=== PATIENT | male | born 1950 | race Caucasian/White ===

== ENCOUNTER 2021-04-04 12:54 | Inpatient (IN) | payer OTHER, SELFPAY ==
[2021-04-04] VITALS (34 sets, daily range): BP systolic 130–164; BP diastolic 60–77; PULSE 47–131; RESP 18–50; TEMP 36.3; O2SAT 81–100
--- NOTE | 2021-04-04 13:13 | DI.CT.S_ITS ---
PROCEDURE: CT CERVICAL SPINE WO CON INDICATIONS: fall TECHNIQUE: Noncontrast 3 mm thick sections acquired from the skull base to the T4 level. Sagittal and coronal reformats were then constructed. For radiation dose reduction, the following was used: automated exposure control, adjustment of mA and/or kV according to patient size. COMPARISON: [facility], CT, CT HEAD/BRAIN WO CON, 04/04/2021, 13:43. FINDINGS: Image quality: This examination is limited by involuntary motion artifact. This examination is somewhat limited by quantum mottle artifact. Bones: No fractures or dislocations. Visualized superior ribs are intact. 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 Age-appropriate bony degenerative changes are seen. There is calcification/ossification seen posterior to the spinous processes, as on series 5, image 52. Soft tissues: Prevertebral soft tissues are normal in thickness. No paravertebral hematomas. No apical pneumothoraces. Small bilateral pleural effusions are seen. IMPRESSION: Limited study demonstrating no visualized cervical spine fracture. Small bilateral pleural effusions are incidentally noted. Incidental note is made of: C2-C3 partial congenital fusion Degenerative change Posterior soft tissue calcification/ossification Dictated by: Tristen Caldwell M.D. on 04/04/2021 at 12:58 Approved by: Tristen Caldwell M.D. on 04/04/2021 at 13:00
--- NOTE | 2021-04-04 13:13 | DI.RAD.S_ITS ---
PROCEDURE: XR HUMERUS RT 2V INDICATIONS: fall TECHNIQUE: 2 views of the humerus were acquired. COMPARISON: [facility], CT, CT CERVICAL SPINE WO CON, 04/04/2021, 13:43. [facility], CT, CT HEAD/BRAIN WO CON, 04/04/2021, 13:43. [facility], CR, XR SHOULDER RT MIN 2V, 04/04/2021, 13:40. [facility], CR, XR CHEST 1V, 04/04/2021, 13:09. FINDINGS: Study limited by difficulty with patient positioning. Bones: No fractures or dislocations. No suspicious bony lesions. Soft tissues: No suspicious soft tissue calcifications. IMPRESSION: No displaced fracture can be seen. Dictated by: Tristen Caldwell M.D. on 04/04/2021 at 13:27 Approved by: Tristen Caldwell M.D. on 04/04/2021 at 13:27
--- NOTE | 2021-04-04 13:13 | DI.CT.S_ITS ---
PROCEDURE: CT HEAD/BRAIN WO CON INDICATIONS: fall TECHNIQUE: Noncontrast 4.5 mm thick angled axial sections acquired from the foramen magnum to the vertex, with coronal and sagittal reformats. For radiation dose reduction, the following was used: automated exposure control, adjustment of mA and/or kV according to patient size. COMPARISON: [facility], CT, CT CERVICAL SPINE WO CON, 04/04/2021, 13:43. FINDINGS: Image quality: This examination is limited by involuntary motion artifact. Mild streak artifact can be seen through the skull base. CSF spaces: Basal cisterns are patent. No extra-axial fluid collections. The ventricles are symmetric in size and shape. Brain: No intracranial bleeds or masses. There is cerebral volume loss for age, with resultant ventricular and sulcal prominence. There are periventricular and deep white matter chronic small vessel ischemic changes. There is intracranial internal carotid artery atherosclerosis. Skull and face: Calvarium and visualized facial bones appear intact, without suspicious lesions. Sinuses: Visualized sinuses and mastoids are clear. IMPRESSION: Unremarkable intracranial study for age. No acute intracranial hemorrhage is seen. Dictated by: Tristen Caldwell M.D. on 04/04/2021 at 12:57 Approved by: Tristen Caldwell M.D. on 04/04/2021 at 12:57
--- NOTE | 2021-04-04 13:13 | DI.RAD.S_ITS ---
PROCEDURE: XR CHEST 1V INDICATIONS: shortness of breath TECHNIQUE: One view of the chest was acquired. COMPARISON: [facility], CT, CT CERVICAL SPINE WO CON, 04/04/2021, 13:43. [facility], CT, CT HEAD/BRAIN WO CON, 04/04/2021, 13:43. [facility], CR, XR SHOULDER RT MIN 2V, 04/04/2021, 13:40. [facility], CR, XR HUMERUS RT 2V, 04/04/2021, 13:09. FINDINGS: Surgical changes and devices: None. Lungs and pleura: Mild interstitial prominence can be seen. On this supine examination, no large pneumothorax or large pleural effusions are seen. No focal areas of lung consolidation are seen. Mediastinum: Mediastinal contours appear normal. Heart size is moderately to prominently enlarged. Bones and chest wall: No suspicious bony lesions. Age-appropriate bony degenerative changes are seen. Overlying soft tissues appear unremarkable. IMPRESSION: Cardiomegaly and mild interstitial prominence. Please correlate with patient presentation, physical examination findings, and laboratory values for congestive heart failure. Dictated by: Tristen Caldwell M.D. on 04/04/2021 at 13:26 Approved by: Tristen Caldwell M.D. on 04/04/2021 at 13:26
--- NOTE | 2021-04-04 13:24 | DI.RAD.S_ITS ---
PROCEDURE: XR SHOULDER RT MIN 2V INDICATIONS: right shoulder pain TECHNIQUE: 3 views of the shoulder were acquired. COMPARISON: [facility], CT, CT CERVICAL SPINE WO CON, 04/04/2021, 13:43. [facility], CT, CT HEAD/BRAIN WO CON, 04/04/2021, 13:43. [facility], CR, XR CHEST 1V, 04/04/2021, 13:09. [facility], CR, XR HUMERUS RT 2V, 04/04/2021, 13:09. FINDINGS: Bones: No fractures or dislocations. No suspicious bony lesions. Visualized ribs appear intact. Degenerative changes are seen, including irregularity of the acromion. Soft tissues: No suspicious soft tissue calcifications. The visualized lung demonstrates an unremarkable appearance. IMPRESSION: Degenerative change, without an acute abnormality seen by plain film. If it would be helpful for clinical management decision making, please consider a dedicated, scheduled shoulder MRI for further evaluation (assuming that there is no contraindication). Dictated by: Tristen Caldwell M.D. on 04/04/2021 at 13:27 Approved by: Tristen Caldwell M.D. on 04/04/2021 at 13:28
--- NOTE | 2021-04-04 13:25 | ED_ITS ---
HPI - Fall General Chief Complaint: Weakness Stated Complaint: Weakness Time Seen by Provider: 04/04/21 13:01 Source: patient and EMS Mode of arrival: EMS History of Present Illness HPI Narrative: This is a 70-year-old male comes emergency department with complaint of ground level fall. Patient was trying to get out of bed he states when he slipped and fell onto the floor. He states he was on the floor for at least 7 hours. He states this was Monday but medics state they came and got him today Monday. He was not on his normal home O2 was 80%. He is now on his normal O2 3 L and has 97%. Patient states his main complaint is his right shoulder he states it feels like the muscles pulled away from the bone. Patient states he did hit his head. He denies headache currently but did when he 1st fell. He denies any new neck or back pain. Um he states that he is on blood thinners for atrial fibrillation. He uses BiPAP to sleep and when he fell you did fall onto his face with the BiPAP. Patient denies any new chest pain or shortness of breath. He denies any nausea or vomiting he feels generally weak but not one-sided. No new numbness or tingling. No bowel or bladder incontinence. He states his son helped him to get to the chair in his home. He states is adamant he fell on Monday and he is aware today is Monday. He is aware of the year and his location. He states he was admitted at the hospital in [place] for 5 weeks while [facility] but they were never able to obtain this and he was ultimately discharged home. Related Data Allergies Allergy/AdvReac Type Severity Reaction Status Date / Time No Known Drug Allergies Allergy Verified 04/04/21 13:54 Review of Systems Review of Systems ROS Unobtainable: All systems reviewed & are unremarkable except as noted in HPI and below Exam Narrative Exam Narrative: GEN: Patient appears in mild distress. HEAD: No evidence of trauma, no raccoon/Valdez sign. NECK: Nontender, painless range of motion, trachea midline Exam Nexus criteria, there is no midline line tenderness, distracting injury, altered mental status, neuro deficit, recent EtOH. EYES: PERRLA, EOMI ENT: External inspection normal, trachea is midline, TM's are normal no hemotypanum, Nares are clear, no septal hematoma, no dental or oral injury, airway is normal and with normal occlusion, No bony tenderness RESP: Chest is nontender and has symmetric movement, no ecchymosis, breath sounds are normal no crackles, wheezes or rales CVS: Heart sounds are normal, no murmur noted, No JVD. ABG/GI: Nontender, soft, normal bowel sounds, no distention, no organomegaly, pelvic rock is negative NEURO: Oriented AOx3, neuro is grossly intact, sensation and motor is normal all 4 extremities moving, cranial nerves II through XII are intact, GCS is 15 PSYCH: Normal mood and affect SKIN: Intact, warm and dry, no crepitus and without decubitus patient does have small area of ecchymosis over the shoulder. BACK: No CVA tenderness, no vertebral tenderness, no step-off's, no crepitus EXT: Patient has pain at the shoulder with movement but is able to move his lower without any issue. He does have some movement at the shoulder joint but is quite painful with ab and adduction. He is otherwise nontende and his other extremities, patient has normal cap refill in all 4 extremities with 2+ pulses bilateral upper extremities. Patient does have some hyperkeratotic and skin thickening part consistent with chronic venous stasis in his lower anterior shins. Initial Vital Signs Initial Vital Signs: Vital Signs Pulse Rate 82 04/04/21 12:53 Pulse Oximetry 100 04/04/21 12:53 Course Orders Ordered: ED Orders 04/04/21 13:10 COVID19 -Nasal swab/Pre-Proc Stat Complete Blood Count AUTO DIFF Stat Comprehensive Metabolic Panel Stat Lactate (Lactic Acid) Stat NT-proBNP (BNP-Adult 18+) Stat Prothrombin Time INR Stat Troponin & CK Cardiac Panel Stat 04/04/21 13:13 CT cervical spine wo con Stat CT head/brain wo con Stat XR chest 1V Stat XR humerus RT 2V Stat EKG-12 Lead Stat Measure peak expiratory flow ONCE RT Consult Eval and Treat Now 04/04/21 13:24 XR shoulder RT min 2V Stat 04/04/21 15:11 BiPAP Ventilatory Support RT PROTOCOL 04/04/21 15:39 UA Complete [Urinalysis and Microscopic] Stat Urine Drug Screen, Rapid Stat 04/04/21 16:11 ABG [Arterial Blood Gas] Stat 04/04/21 16:29 COVID19 - ADMIT (GARMENT PRESSER swab/PCR) Stat Acetaminophen (Acetaminophen 325 Mg Tablet) 650 mg PO Q6HR PRN PRN Reason: Fever/Mild Pain (1-3) Albuterol/Ipratropium (Albuterol/Ipratropium 3 Ml Ampul) 3 ml INH RTQ4HR PRN PRN Reason: Shortness Of Breath Bisacodyl (Bisacodyl 10 Mg Supp) 10 mg OH DAILY PRN PRN Reason: Constipation Docusate Sodium (Docusate 100 Mg Capsule) 100 mg PO BID [facility] Enoxaparin Sodium (Enoxaparin 40 Mg/0.4 Ml Syringe) 40 mg SUBCUT DAILY [facility] Famotidine (Famotidine 20 Mg/2 Ml Vial) 40 mg IV BID [facility] Sodium Chloride (Normal Saline 0.9%) 1,000 mls @ 100 mls/hr IV CONT [facility] Last Admin: 04/04/21 17:57 Dose: 100 mls/hr Documented by: JURGEN Ceftriaxone Sodium 1,000 mg/ (Sodium Chloride) 100 mls @ 200 mls/hr IV Q24H [facility] Last Admin: 04/04/21 17:58 Dose: 200 mls/hr Documented by: JURGEN Doxycycline Hyclate 100 mg/ (Sodium Chloride) 100 mls @ 100 mls/hr IV Q12H [facility] Last Admin: 04/04/21 18:53 Dose: 100 mls/hr Documented by: JURGEN Lorazepam (Lorazepam 2 Mg/Ml Inj) 1 mg IV Q4HR PRN PRN Reason: Anxiety Methylprednisolone (Methylprednisolone 125 Mg/2 Ml Vial) 60 mg IV Q8H [facility] Last Admin: 04/04/21 17:58 Dose: 60 mg Documented by: JURGEN Morphine Sulfate (Morphine 2 Mg/Ml Inj) 2 mg IV Q4HR PRN PRN Reason: Pain, Moderate (4-6) Naloxone HCl (Naloxone 0.4 Mg/Ml Vial) 0.2 mg IV Q2MIN PRN PRN Reason: Opiate Reversal Ondansetron HCl (Ondansetron 4 Mg/2 Ml Inj) 4 mg IV Q8HR PRN PRN Reason: Nausea And Vomiting Discontinued Medications Acetaminophen (Acetaminophen 325 Mg Tablet) 650 mg PO NOW ONE Stop: 04/04/21 13:25 Last Admin: 04/04/21 14:32 Dose: 650 mg Documented by: JURGEN Furosemide (Furosemide 40 Mg/4 Ml Vial) 40 mg IV NOW ONE Stop: 04/04/21 15:05 Last Admin: 04/04/21 15:28 Dose: 40 mg Documented by: JURGEN Reevaluation(s) Reevaluation #1: Patient has had some intermittent lows on his oxygenation when he falls asleep. He normally uses a BiPAP at home. Attempted to contact family to bring his machine but were unable so RT placed him on BiPAP for when he sleeps. His labs showed elevated CO2 his BNP is slightly elevated but no other major changes. He has some cardiomegaly and mild interstitial prominence which could be consistent with congestive heart failure. Patient's head CT is negative, C-spine is negative with no obvious dislocation or fracture at his shoulder. He does have quite a bit of pain so I suspect he has had a ligamentous or tendon injury. Time: 15:04 Consultations Consultation #1: Patient accepted by Dr. Perez for acute on chronic hypercapnic respiratory failure. Patient's ABG shows a CO2 of 90. He has intermittent confusion but is not obtunded. Vital Signs Vital signs: Vital Signs - 8 hr 04/04/21 12:53 04/04/21 12:54 04/04/21 13:00 Temperature Pulse Rate 82 82 83 Respiratory Rate Blood Pressure 153/68 H 148/67 H Pulse Oximetry 100 100 94 04/04/21 13:15 04/04/21 13:30 04/04/21 14:07 Temperature 97.4 F L Pulse Rate 84 77 Respiratory Rate 20 Blood Pressure 148/67 H 157/72 H Pulse Oximetry 97 91 81 L 04/04/21 14:08 04/04/21 14:30 04/04/21 15:00 Temperature Pulse Rate 82 83 83 Respiratory Rate Blood Pressure 159/72 H 148/65 H 148/65 H Pulse Oximetry 92 95 96 04/04/21 15:30 04/04/21 15:39 04/04/21 16:00 Temperature Pulse Rate 76 70 70 Respiratory Rate Blood Pressure 153/68 H 151/70 H 164/73 H Pulse Oximetry 95 95 98 04/04/21 16:30 Temperature Pulse Rate 75 Respiratory Rate Blood Pressure 156/72 H Pulse Oximetry 98 MDM - Fall Lab Data Result diagrams: 04/04/21 13:10 04/04/21 13:10 Labs: Lab Results 04/04/21 04/04/21 04/04/21 Range/Units 13:10 13:10 13:10 WBC 7.0 (4.5-11.0) X10^3/uL RBC 4.41 L (4.5-5.9) X10^6/uL Hgb 11.0 L (13.5-17.5) g/dL Hct 36.2 L (41-53) % MCV 82.0 (80-100) fL MCH 25.0 L (26-34) PG MCHC 30.5 (30-36) % RDW 21.8 H (11.6-14.8) % Plt Count 213 (150-400) X10^3/uL Neut % (Auto) 72.7 (50-75) % Lymph % (Auto) 18.2 L (25-40) % [place] % (Auto) 5.7 (3-14) % Eos % (Auto) 3.0 (2-4) % Baso % (Auto) 0.4 (0-2) % Neut # (Auto) 5100 (5846-5399) /uL Lymph # (Auto) 1300 (2359-8363) /uL [place] # (Auto) 400 (0-900) /uL Eos # (Auto) 200 (0-450) /uL Baso # (Auto) 0 (0-100) /uL RBC Morphology See below Polychromasia 1+ H Anisocytosis 2+ H Ovalocytes 1+ H PT 13.2 H (10.1-12.7) SECONDS INR 1.2 (0.9-1.3) ABG pH (7.35-7.45) ABG pCO2 (35-45) mmHg ABG pO2 (80-100) mmHg ABG HCO3 (22-26) mmol/L ABG Total CO2 (21-31) mmol/L ABG O2 Saturation (95-100) % ABG Base Excess (-2-2) mmol/L FiO2 Sodium 142 (137-145) mmol/L Potassium 4.4 (3.4-5.1) mmol/L Chloride 94 L (98-107) mmol/L Carbon Dioxide 48 H* (22-32) mmol/L BUN 28 H (9-20) mg/dL Creatinine 0.90 (0.66-1.25) mg/dL Estimated GFR > 60.0 (>60) mL/min BUN/Creatinine Ratio 31.1 H (6-22) Glucose 117 H (80-110) mg/dL Lactate (0.7-2.1) mmol/L Calcium 8.7 (8.4-10.2) mg/dL Total Bilirubin 0.4 (0.2-1.3) mg/dL AST 21 (17-59) IU/L ALT 12 (<50) IU/L Alkaline Phosphatase 101 (38-126) U/L Total Creatine Kinase 24 L (55-170) U/L CK-MB (CK-2) TNP CK-MB (CK-2) Rel Index TNP Troponin I 0.017 (0.01-0.034) ng/mL NT-Pro-B Natriuret Pep 929 H (<125) pg/mL Total Protein 6.9 (6.3-8.2) g/dL Albumin 3.5 (3.5-5.0) g/dL Globulin 3.4 (1.7-4.1) g/dL Albumin/Globulin Ratio 1.0 (1.0-2.8) SARS-CoV-2 (PCR) (Negative) 04/04/21 04/04/21 04/04/21 Range/Units 13:10 13:10 16:11 WBC (4.5-11.0) X10^3/uL RBC (4.5-5.9) X10^6/uL Hgb (13.5-17.5) g/dL Hct (41-53) % MCV (80-100) fL MCH (26-34) PG MCHC (30-36) % RDW (11.6-14.8) % Plt Count (150-400) X10^3/uL Neut % (Auto) (50-75) % Lymph % (Auto) (25-40) % [place] % (Auto) (3-14) % Eos % (Auto) (2-4) % Baso % (Auto) (0-2) % Neut # (Auto) (8730-3967) /uL Lymph # (Auto) (7219-6792) /uL [place] # (Auto) (0-900) /uL Eos # (Auto) (0-450) /uL Baso # (Auto) (0-100) /uL RBC Morphology Polychromasia Anisocytosis Ovalocytes PT (10.1-12.7) SECONDS INR (0.9-1.3) ABG pH 7.27 L* (7.35-7.45) ABG pCO2 98.1 H* (35-45) mmHg ABG pO2 67 L (80-100) mmHg ABG HCO3 45 H (22-26) mmol/L ABG Total CO2 48 H (21-31) mmol/L ABG O2 Saturation 88 L (95-100) % ABG Base Excess 18.0 H (-2-2) mmol/L FiO2 32 Sodium (137-145) mmol/L Potassium (3.4-5.1) mmol/L Chloride (98-107) mmol/L Carbon Dioxide (22-32) mmol/L BUN (9-20) mg/dL Creatinine (0.66-1.25) mg/dL Estimated GFR (>60) mL/min BUN/Creatinine Ratio (6-22) Glucose (80-110) mg/dL Lactate < 0.5 L (0.7-2.1) mmol/L Calcium (8.4-10.2) mg/dL Total Bilirubin (0.2-1.3) mg/dL AST (17-59) IU/L ALT (<50) IU/L Alkaline Phosphatase (38-126) U/L Total Creatine Kinase (55-170) U/L CK-MB (CK-2) CK-MB (CK-2) Rel Index Troponin I (0.01-0.034) ng/mL NT-Pro-B Natriuret Pep (<125) pg/mL Total Protein (6.3-8.2) g/dL Albumin (3.5-5.0) g/dL Globulin (1.7-4.1) g/dL Albumin/Globulin Ratio (1.0-2.8) SARS-CoV-2 (PCR) Negative (Negative) 04/04/21 Range/Units 16:29 WBC (4.5-11.0) X10^3/uL RBC (4.5-5.9) X10^6/uL Hgb (13.5-17.5) g/dL Hct (41-53) % MCV (80-100) fL MCH (26-34) PG MCHC (30-36) % RDW (11.6-14.8) % Plt Count (150-400) X10^3/uL Neut % (Auto) (50-75) % Lymph % (Auto) (25-40) % [place] % (Auto) (3-14) % Eos % (Auto) (2-4) % Baso % (Auto) (0-2) % Neut # (Auto) (1760-6596) /uL Lymph # (Auto) (8650-1919) /uL [place] # (Auto) (0-900) /uL Eos # (Auto) (0-450) /uL Baso # (Auto) (0-100) /uL RBC Morphology Polychromasia Anisocytosis Ovalocytes PT (10.1-12.7) SECONDS INR (0.9-1.3) ABG pH (7.35-7.45) ABG pCO2 (35-45) mmHg ABG pO2 (80-100) mmHg ABG HCO3 (22-26) mmol/L ABG Total CO2 (21-31) mmol/L ABG O2 Saturation (95-100) % ABG Base Excess (-2-2) mmol/L FiO2 Sodium (137-145) mmol/L Potassium (3.4-5.1) mmol/L Chloride (98-107) mmol/L Carbon Dioxide (22-32) mmol/L BUN (9-20) mg/dL Creatinine (0.66-1.25) mg/dL Estimated GFR (>60) mL/min BUN/Creatinine Ratio (6-22) Glucose (80-110) mg/dL Lactate (0.7-2.1) mmol/L Calcium (8.4-10.2) mg/dL Total Bilirubin (0.2-1.3) mg/dL AST (17-59) IU/L ALT (<50) IU/L Alkaline Phosphatase (38-126) U/L Total Creatine Kinase (55-170) U/L CK-MB (CK-2) CK-MB (CK-2) Rel Index Troponin I (0.01-0.034) ng/mL NT-Pro-B Natriuret Pep (<125) pg/mL Total Protein (6.3-8.2) g/dL Albumin (3.5-5.0) g/dL Globulin (1.7-4.1) g/dL Albumin/Globulin Ratio (1.0-2.8) SARS-CoV-2 (PCR) Negative (Negative) Imaging Data CT scan - head: Radiologist's Impression: GEN: well nourished, well appearing [default value], alert and oriented x [default value], patient appears to be in [default value] distress. HEENT: Atraumatic, pupils are equal round reactive to light, extraocular movements are intact, nares are clear, TMs are clear with no fluid, there is no conjunctival pallor.? Throat is clear without any exudates, erythema, tonsillar enlargement or uvular deviation HEART: Regular rate and rhythm without murmur, clicks, rubs.? No carotid bruits, pulses are equal in upper and lower extremities LUNGS:Lungs clear to auscultation, no wheezes, rales, crackles, chest moves symmetrically ABD:bowel sounds normal, soft, non-tender, no guarding, rebound, rigidity, no masses noted, no hepatosplenomegaly :No CVA tenderness, [male/female exam] MSCL: Non-tender, no muscle atrophy, muscles strength 5/5 upper and lower ext remities, full range of motion, normal gait NEURO:CN 2-12 intact, sensation normal, reflexes 2/4 upper and lower extremities. finger nose finger test normal, heel cancino test normal, romberg normal Chest x-ray: Radiologist's Impression: Bradley Montalvo??70??M??1950 ? Allergy/Adv: No Known Drug Allergies Close Shoulder X-Ray (Signed) Tristen Caldwell 04/04/21 Humerus X-Ray (Signed) Tristen Caldwell 04/04/[address] (Signed) Tristen Caldwell 04/04/21 Chest X-Ray (Signed) Tristen Caldwell 04/04/[address] (Signed) Tristen Caldwell 04/04/21 Launch?[address] [address] XRay Report Signed Patient: Bradley Montalvo MR#: [id number] : 1950 Acct:[id number] Age/Sex: 70 / M Date of Service: 04/04/21 Loc: ED Accession Number: [id number] ?? Procedure: XR chest 1V Ordering Provider: Joana Potts D.O. PROCEDURE:? XR CHEST 1V ? INDICATIONS:? shortness of breath ? TECHNIQUE:? One view of the chest was acquired.? ? COMPARISON:? [facility], CT, CT CERVICAL SPINE WO CON, 04/04/2021, 13:43.? [facility], CT, CT HEAD/BRAIN WO CON, 04/04/2021, 13:43.? [facility], CR, XR SHOULDER RT MIN 2V, 04/04/2021, 13:40.? [facility], CR, XR HUMERUS RT 2V, 04/04/2021, 13:09. ? FINDINGS:? ? Surgical changes and devices:? None.? ? Lungs and pleura:? Mild interstitial prominence can be seen.? On this supine examination, no large pneumothorax or large pleural effusions are seen. No focal areas of lung consolidation are seen. ? Mediastinum:? Mediastinal contours appear normal.? Heart size is moderately to prominently enlarged.? ? Bones and chest wall:? No suspicious bony lesions.? Age-appropriate bony degenerative changes are seen. ? Overlying soft tissues appear unremarkable.? ? ? IMPRESSION:? Cardiomegaly and mild interstitial prominence.? Please correlate with patient presentation, physical examination findings, and laboratory values for congestive heart failure. ? ? Dictated by: Tristen Caldwell M.D. on 04/04/2021 at 13:26 ? ? Approved by: Tristen Caldwell M.D. on 04/04/2021 at 13:26?? CT - cervical spine: Radiologist's Impression: Bradley Montalvo? 70? M? 1950 ? ?? [address] [address]JW Scan ReportSigned Patient: Bradley Montalvo DMR#: [id number]: 1950cct:[id number]/Sex: 70 / MDate of Service: 04/04/21Loc: EDAccession Number: [id number]? ? Procedure: CT cervical spine wo con Ordering Provider: Joana Potts D.O. PROCEDURE:? CT CERVICAL SPINE WO CON ? INDICATIONS:? fall ? TECHNIQUE:? Noncontrast 3 mm thick sections acquired from the skull base to the T4 level.? Sagittal and coronal reformats were then constructed.? For radiation dose reduction, the following was used:? automated exposure control, adjustment of mA and/or kV according to patient size.? ? COMPARISON:? [facility], CT, CT HEAD/BRAIN WO CON, 04/04/2021, 13:43. ? FINDINGS:? Image quality:? This examination is limited by involuntary motion artifact.? This examination is somewhat limited by quantum mottle artifact.? ? Bones:? No fractures or dislocations.? Visualized superior ribs are intact.? 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 Age-appropriate bony degenerative changes are seen.? There is calcification/ossification seen posterior to the spinous processes, as on series 5, image 52.? ? Soft tissues:? Prevertebral soft tissues are normal in thickness.? No paravertebral hematomas.? No apical pneumothoraces.? Small bilateral pleural effusions are seen. ? ? IMPRESSION:? Limited study demonstrating no visualized cervical spine fracture. ? Small bilateral pleural effusions are incidentally noted. ? ? Incidental note is made of: C2-C3 partial congenital fusion Degenerative change Posterior soft tissue calcification/ossification ? ? Dictated by: Tristen Caldwell M.D. on 04/04/2021 at 12:58? ?? Approved by: Tristen Caldwell M.D. on 04/04/2021 at 13:00?? Extremity x-ray #1: Radiologist's Impression: Launch?Image [address] [address] XRay Report Signed Patient: Bradley Montalvo MR#: [id number] : 1950 Acct:[id number] Age/Sex: 70 / M Date of Service: 04/04/21 Loc: ED Accession Number: [id number] ?? Procedure: XR humerus RT 2V Ordering Provider: Joana Potts D.O. PROCEDURE:? XR HUMERUS RT 2V ? INDICATIONS:? fall ? TECHNIQUE:? 2 views of the humerus were acquired.? ? COMPARISON:? [facility], CT, CT CERVICAL SPINE WO CON, 04/04/2021, 13:43.? [facility], CT, CT HEAD/BRAIN WO CON, 04/04/2021, 13:43.? [facility], CR, XR SHOULDER RT MIN 2V, 04/04/2021, 13:40.? [facility], CR, XR CHEST 1V, 04/04/2021, 13:09. ? FINDINGS:? Study limited by difficulty with patient positioning. ? Bones:? No fractures or dislocations.? No suspicious bony lesions.? ? Soft tissues:? No suspicious soft tissue calcifications.? IMPRESSION:? No displaced fracture can be seen. ? ? Dictated by: Tristen Caldwell M.D. on 04/04/2021 at 13:27 ? ? Approved by: Tristen Caldwell M.D. on 04/04/2021 at 13:27?? Extremity x-ray #2: Radiologist's Impression: Launch?[place] [address] XRay Report Signed Patient: Bradley Montalvo MR#: [id number] : 1950 Acct:[id number] Age/Sex: 70 / M Date of Service: 04/04/21 Loc: ED Accession Number: [id number] ?? Procedure: XR humerus RT 2V Ordering Provider: Joana Potts D.O. PROCEDURE:? XR HUMERUS RT 2V ? INDICATIONS:? fall ? TECHNIQUE:? 2 views of the humerus were acquired.? ? COMPARISON:? [facility], CT, CT CERVICAL SPINE WO CON, 04/04/2021, 13:43.? [facility], CT, CT HEAD/BRAIN WO CON, 04/04/2021, 13:43.? [facility], CR, XR SHOULDER RT MIN 2V, 04/04/2021, 13:40.? [facility], CR, XR CHEST 1V, 04/04/2021, 13:09. ? FINDINGS:? Study limited by difficulty with patient positioning. ? Bones:? No fractures or dislocations.? No suspicious bony lesions.? ? Soft tissues:? No suspicious soft tissue calcifications.? IMPRESSION:? No displaced fracture can be seen. ? ? Dictated by: Tristen Caldwell M.D. on 04/04/2021 at 13:27 ? ? Approved by: Tristen Caldwell M.D. on 04/04/2021 at 13:27?? ECG Data Attestation: I personally reviewed and interpreted this ECG as follows: Prior ECG tracings: not available for review Interpretation: Sinus rhythm with first-degree AV block. Rate of 76 OH 292, QRS of 78 QTC of 420. No acute ST changes noted. Discharge Plan Departure Patient Disposition: Admitted As Inpatient Clinical Impression: Fall, Pain in right shoulder, CHF (congestive heart failure), Acute and chronic respiratory failure with hypercapnia Admit Date/Time: 04/04/21 16:42 Admit Provider: Ken Fofana
[2021-04-04 13:37] LABS: INR 1.2 (0.9-1.3); Prothrombin Time 13.2 SECONDS (10.1-12.7)
[2021-04-04 13:40] LABS: Add Manual Diff / Slide Review NO; Basophils Absolute Auto 0 /uL (0-100); Basophils Percent Auto 0.4 % (0-2); Eosinophils Absolute Auto 200 /uL (0-450); Hematocrit 36.2 % (41-53); Lymphocytes Absolute Auto 1300 /uL (1100-4500); Lymphocytes Percent Auto 18.2 % (25-40); Mean Corpuscular HGB Conc 30.5 % (30-36); Monocytes Absolute Auto 400 /uL (0-900); Monocytes Percent Auto 5.7 % (3-14); Neutrophils Absolute Auto 5100 /uL (1500-7000); Neutrophils Percent Auto 72.7 % (50-75); Platelet Count 213 X10^3/uL (150-400); Red Blood Cell Count 4.41 X10^6/uL (4.5-5.9); Red Cell Distribution Width 21.8 % (11.6-14.8)
[2021-04-04 13:41] LABS: Alanine Aminotransferase 12 IU/L (<50); Albumin 3.5 g/dL (3.5-5.0); Alkaline Phosphatase 101 U/L (38-126); Aspartate Aminotransferase 21 IU/L (17-59); BUN Creatinine Ratio 31.1 (6-22); Bilirubin Total 0.4 mg/dL (0.2-1.3); Blood Urea Nitrogen 28 mg/dL (9-20); Calcium 8.7 mg/dL (8.4-10.2); Chloride 94 mmol/L (98-107); Creatine Kinase 24 U/L (55-170); Estimated Glomerular Filt Rate > 60.0 mL/min (>60); Globulin 3.4 g/dL (1.7-4.1); Glucose 117 mg/dL (80-110); HEMOLYSIS < 15 (0-50); Potassium 4.4 mmol/L (3.4-5.1); Sodium 142 mmol/L (137-145); Total Protein 6.9 g/dL (6.3-8.2)
[2021-04-04 13:49] LABS: Lactate (Lactic Acid) < 0.5 mmol/L (0.7-2.1)
[2021-04-04 13:52] LABS: Carbon Dioxide 48 mmol/L (22-32)
[2021-04-04 13:53] LABS: NT-proBNP (BNP-Adult 18+) 929 pg/mL (<125); Troponin I 0.017 ng/mL (0.01-0.034)
[2021-04-04 14:03] LABS: COVID19 -Nasal RAPID Negative (Negative)
[2021-04-04] MEDS: ACETAMINOPHEN 325 MG TABLET 650 MG PO (14:32)
[2021-04-04 14:52] LABS: Anisocytosis 2+; Ovalocytes 1+; Polychromasia 1+
[2021-04-04] MEDS: FUROSEMIDE 40 MG/4 ML VIAL IV (15:28)
--- NOTE | 2021-04-04 15:33 | PC.NURSE ---
10L O2 on non-rebreather t maintain sat of 92-96%. RT placed pt on positive pressure for O2 sat maintenance. Current sat 91-96%. Pt has sleep apnea, O2 sat decreases when patient dozes-off. aware.
--- NOTE | 2021-04-04 15:36 | PC.NURSE ---
Pt failed ambulation test. Pt is currently confused to place/situation and date/time. MD advised.
--- NOTE | 2021-04-04 16:00 | PC.NURSE ---
Unable to place urinary jonas catheter after multiple attempts, aware. Assisted by and fish bin tender.
--- NOTE | 2021-04-04 16:00 | PC.NURSE ---
RT at bedside, pt ABG 98.
--- NOTE | 2021-04-04 17:11 | RT ---
Re ABG results co2 98, Dr. Potts order to place on Bipap. Pt kana well, sao2 @95%. barrier applied to face and bridge of nose, redness
[2021-04-04 17:17] LABS: pH ABG 7.27 (7.35-7.45)
[2021-04-04 17:18] LABS: Fractionated Inspired Oxygen 32; HCO3 ABG 45 mmol/L (22-26); Oxygen Saturation ABG 88 % (95-100); PCO2 ABG 98.1 mmHg (35-45); PO2 ABG 67 mmHg (80-100); TCO2 ABG 48 mmol/L (21-31)
--- NOTE | 2021-04-04 17:18 | PC.NURSE ---
states patient was hospitalized @ [facility] x 34 days for hypoxia. Patient currently on BiPap 20/, 40% with 20 BUR. ABG 98 @ 32% per RT.
[2021-04-04 17:44] LABS: COVID19 - ADMIT (NP swab/PCR) Negative (Negative)
[2021-04-04] MEDS: SODIUM CHLORIDE 0.9% 1,000 ML 100 ML IV (17:57)
[2021-04-04] MEDS: cefTRIAXone 1,000 MG in SODIUM CHLORIDE 0.9% 100 ML 200 ML IV (17:58)
[2021-04-04] MEDS: methylPREDNISolone 125 MG/2 ML VIAL 60 MG IV (17:58)
--- NOTE | 2021-04-04 18:42 | P.HP_ITS ---
History of Present Illness History of Present Illness Date Patient Seen: 04/04/21 Chief complaint: Weakness Narrative: THIS IS A 70-YEAR-OLD MALE FOR POSSIBLE TO GO HISTORY SIGNIFICANT FOR COPD. PATIENT PRESENTED TO THE HOSPITAL WITH SIGN OF ACUTE RESPIRATORY FAILURE WITH CHANGE IN MENTATION. IN THE ER, HIS ABG SHOWED SIGNIFICANT HYPERCAPNIA. PATIENT WAS STARTED ON THE BIPAP. HE IS SIGNIFICANTLY ENCEPHALOPATHIC AND UNABLE TO PROVIDE A RELIABLE HISTORY AND REVIEW OF SYSTEM. ADDITIONAL WORKUP IN THE ER SHOWING FAIRLY STABLE KIDNEY FUNCTION. CO2 IN THE COMPLETE METABOLIC PANEL IS 48. CARBON DIOXIDE LEVEL IS 98. SOME ANEMIA NOTED. LACTIC IS OOZING NORMAL LIMIT. BNP MILDLY ELEVATED AT 900 IMAGING DONE IN THE ER DID NOT SHOW ANY SIGNIFICANT ABNORMALITIES. Meds Home Medications and Allergies Allergies Allergy/AdvReac Type Severity Reaction Status Date / Time No Known Drug Allergies Allergy Verified 04/04/21 13:54 Review of Systems Review of Systems Narrative: UNABLE TO OBTAIN DUE TO PATIENT CURRENT MENTAL CONDITION Exam Vital Signs (past 8 hours): - 04/04/21 12:53 04/04/21 12:54 04/04/21 13:00 Temperature Pulse Rate 82 82 83 Respiratory Rate Blood Pressure 153/68 H 148/67 H Pulse Oximetry 100 100 94 04/04/21 13:15 04/04/21 13:30 04/04/21 14:07 Temperature 97.4 F L Pulse Rate 84 77 Respiratory Rate 20 Blood Pressure 148/67 H 157/72 H Pulse Oximetry 97 91 81 L 04/04/21 14:08 04/04/21 14:30 04/04/21 15:00 Temperature Pulse Rate 82 83 83 Respiratory Rate Blood Pressure 159/72 H 148/65 H 148/65 H Pulse Oximetry 92 95 96 04/04/21 15:30 04/04/21 15:39 04/04/21 16:00 Temperature Pulse Rate 76 70 70 Respiratory Rate Blood Pressure 153/68 H 151/70 H 164/73 H Pulse Oximetry 95 95 98 04/04/21 16:30 04/04/21 17:00 04/04/21 17:30 Temperature Pulse Rate 75 82 75 Respiratory Rate Blood Pressure 156/72 H 141/67 H 156/71 H Pulse Oximetry 98 96 97 04/04/21 18:00 04/04/21 18:30 Temperature Pulse Rate 75 66 Respiratory Rate Blood Pressure 147/69 H 147/67 H Pulse Oximetry 95 98 Fraction of Inspired Oxygen 40 Oxygen Delivery Method BiPAP Oxygen Flow Rate 10 Narrative Exam Narrative: ENCEPHALOPATHY.. APPEARS OLDER THAN STATED AGE. OBESE HEAD ATRAUMATIC NORMOCEPHALIC NECK : NO ADENOPATHY NO CAROTID BRUITS EYE: PERRLA, NORMAL CONJUNCTIVA; NO JAUNDICE CHEST: REGULAR RATE. NO RUBS. PMI IS NON DISPLACED. NO MURMURS; NORMAL S1-S2 PULMONARY: ON BIPAP. IS IN APPRECIATED BILATERALLY. DECREASED BS OVER THE BASES. BIBASILAR CRACKLES NOTED; NO INCREASED DULLNESS TO PERCUSSION ABDOMEN: OBESE BUTSOFT. NONDISTENDED. BOWEL SOUNDS ARE PRESENT IN ALL 4 QUADRANTS. UNABLE TO PALPATE FOR ORGANOMEGALY DUE TO BODY HABITUS EXTREMITIES: 3+ NONPITTING BILATERAL LOWER EXTREMITY EDEMA.. NO CYANOSIS CLUBBING NOTED. NEURO: CRANIAL NERVES 2-12 GROSSLY INTACT. NO FOCAL NEUROLOGICAL DEFICIT NOTED. ENCEPHALOPATHY MSK: NORMAL PASSIVE RANGE OF MOTION FOR AGE. NO JOINT EFFUSION. NO TRAUMA SKIN: CHRONIC CHANGES NOTED TO BILATERAL LOWER EXTREMITIES. NO OPEN LESION PSYCH : ENCEPHALOPATHY. NO AGGRESSION. MILDLY AGITATED Objective Labs Result Diagrams: 04/04/21 13:10 04/04/21 13:10 Labs: Laboratory Results - last 24 hr 04/04/21 04/04/21 04/04/21 13:10 13:10 13:10 WBC 7.0 RBC 4.41 L Hgb 11.0 L Hct 36.2 L MCV 82.0 MCH 25.0 L MCHC 30.5 RDW 21.8 H Plt Count 213 Neut % (Auto) 72.7 Lymph % (Auto) 18.2 L [place] % (Auto) 5.7 Eos % (Auto) 3.0 Baso % (Auto) 0.4 Neut # (Auto) 5100 Lymph # (Auto) 1300 [place] # (Auto) 400 Eos # (Auto) 200 Baso # (Auto) 0 RBC Morphology See below Polychromasia 1+ H Anisocytosis 2+ H Ovalocytes 1+ H PT 13.2 H INR 1.2 ABG pH ABG pCO2 ABG pO2 ABG HCO3 ABG Total CO2 ABG O2 Saturation ABG Base Excess FiO2 Sodium 142 Potassium 4.4 Chloride 94 L Carbon Dioxide 48 H* BUN 28 H Creatinine 0.90 Estimated GFR > 60.0 BUN/Creatinine Ratio 31.1 H Glucose 117 H Lactate Calcium 8.7 Total Bilirubin 0.4 AST 21 ALT 12 Alkaline Phosphatase 101 Total Creatine Kinase 24 L CK-MB (CK-2) TNP CK-MB (CK-2) Rel Index TNP Troponin I 0.017 NT-Pro-B Natriuret Pep 929 H Total Protein 6.9 Albumin 3.5 Globulin 3.4 Albumin/Globulin Ratio 1.0 SARS-CoV-2 (PCR) 04/04/21 04/04/21 04/04/21 13:10 13:10 16:11 WBC RBC Hgb Hct MCV MCH MCHC RDW Plt Count Neut % (Auto) Lymph % (Auto) [place] % (Auto) Eos % (Auto) Baso % (Auto) Neut # (Auto) Lymph # (Auto) [place] # (Auto) Eos # (Auto) Baso # (Auto) RBC Morphology Polychromasia Anisocytosis Ovalocytes PT INR ABG pH 7.27 L* ABG pCO2 98.1 H* ABG pO2 67 L ABG HCO3 45 H ABG Total CO2 48 H ABG O2 Saturation 88 L ABG Base Excess 18.0 H FiO2 32 Sodium Potassium Chloride Carbon Dioxide BUN Creatinine Estimated GFR BUN/Creatinine Ratio Glucose Lactate < 0.5 L Calcium Total Bilirubin AST ALT Alkaline Phosphatase Total Creatine Kinase CK-MB (CK-2) CK-MB (CK-2) Rel Index Troponin I NT-Pro-B Natriuret Pep Total Protein Albumin Globulin Albumin/Globulin Ratio SARS-CoV-2 (PCR) Negative 04/04/21 16:29 WBC RBC Hgb Hct MCV MCH MCHC RDW Plt Count Neut % (Auto) Lymph % (Auto) [place] % (Auto) Eos % (Auto) Baso % (Auto) Neut # (Auto) Lymph # (Auto) [place] # (Auto) Eos # (Auto) Baso # (Auto) RBC Morphology Polychromasia Anisocytosis Ovalocytes PT INR ABG pH ABG pCO2 ABG pO2 ABG HCO3 ABG Total CO2 ABG O2 Saturation ABG Base Excess FiO2 Sodium Potassium Chloride Carbon Dioxide BUN Creatinine Estimated GFR BUN/Creatinine Ratio Glucose Lactate Calcium Total Bilirubin AST ALT Alkaline Phosphatase Total Creatine Kinase CK-MB (CK-2) CK-MB (CK-2) Rel Index Troponin I NT-Pro-B Natriuret Pep Total Protein Albumin Globulin Albumin/Globulin Ratio SARS-CoV-2 (PCR) Negative Assessment & Plan Assessment & Plan narrative: IMPRESSION ACUTE HYPOXIC/HYPERCAPNIC CHRONIC RESPIRATORY FAILURE ACUTE COPD EXACERBATION METABOLIC ENCEPHALOPATHY MORBID OBESITY ELEVATED BNP POSSIBLE PHYSICAL DECONDITIONING PLAN PATIENT WILL BE ADMITTED TO THE FLOOR ON BIPAP SUPPORT SERIAL ABG TO FOLLOW REPEAT CHEST X-RAY IN THE MORNING AND SERIALLY TO FOLLOW ASPIRATION PRECAUTION TO MAINTAIN STRICT A WHILE ON THE VENT STARTED ON ANTIBIOTICS WITH ROCEPHIN AND DOXY DUONEBS TREATMENT ORDERED NEEDED FOR NOW HOWEVER SHOULD BE SWITCHED TO SCHEDULE ONCE PATIENT IS OFF BIPAP ON SOLU-MEDROL IF PATIENT IS MOVED TO THE ICU, WILL CONSULT WITH CLAY PREPARATION SUPERVISOR ASSISTANCE DAILY LABS WILL BE ORDERED WILL ORDER INCENTIVE SPIROMETER DEVICE ONCE PATIENT IS OFF THE BIPAP AGGRESSIVE PULMONARY TOILETING CONSIDER TRANSFERRING TO TERTIARY FACILITY FOR HIGHER LEVEL OF CARE IF CONDITION WORSENS ADDITIONAL MANAGEMENT OF CLINICAL COURSE PROGNOSIS IS GUARDED Time Spent With Patient Critical Care time: I spent a total of [] minutes of critical care time on this patient's care today; this time is exclusive of procedural time.
[2021-04-04] MEDS: DOXYCYCLINE 100 MG in SODIUM CHLORIDE 0.9% 100 ML IV (18:53)
[2021-04-04 19:38] LABS: Fractionated Inspired Oxygen 40; HCO3 ABG 43 mmol/L (22-26); Oxygen Saturation ABG 95 % (95-100); PCO2 ABG 96.9 mmHg (35-45); PO2 ABG 96 mmHg (80-100); TCO2 ABG 46 mmol/L (21-31); pH ABG 7.26 (7.35-7.45)
--- NOTE | 2021-04-04 19:44 | PC.NURSE ---
Pts HR in the high 40's. Dr Mayes aware. No new orders at this time.
--- NOTE | 2021-04-04 21:13 | PC.NURSE ---
Pt neuro status improving. Pt alert and oriented. Pt knows who I am now which he did not at 1900 tonight when I arrived. Pt recalling things from past and able to tell me about his kids and grandkids.
[2021-04-04] MEDS: FAMOTIDINE 20 MG/2 ML VIAL 40 MG IV (21:23)
[2021-04-04] MEDS: AZITHROMYCIN 500 MG in DEXTROSE 5% IN WATER 250 ML IV (21:25)
--- NOTE | 2021-04-04 21:25 | PC.NURSE ---
per Dr Mayes we called multiple hospitals in the region to try and finf a ICU bed for Pt [place]- @2019 spoke with Gina(House sup) Has no ICU beds and no wait list due to the fact that they have a ICU pt boarding in their ER for 61 hrs [place]- @2023 spoke with Geovanna( transfer center) Waitlist but does not expect bed at the earliest 04/05/21 after D/C's [facility]- @ 2023 spoke with Jyoti (transfer center) ICU beds limited and will update in 4-6 hours [facility]- @ 2031 sopke with Francia( transfer canter) Closed to outside transfers with a few exceptions that pt diagnosis does not qualify for [facility]- @ 2034 Spoke with Dudley (transfer center) Will review faxed Dr fernando and access if pt will qualify for step down but have not ICU beds at this time. [facility]- @2044 spoke with Eleanor she will continue to look for ICU bed for Pt
[2021-04-04 22:21] LABS: pH ABG 7.31 (7.35-7.45)
[2021-04-04 22:22] LABS: Fractionated Inspired Oxygen 32; HCO3 ABG 44 mmol/L (22-26); Oxygen Saturation ABG 91 % (95-100); PO2 ABG 72 mmHg (80-100); TCO2 ABG 46 mmol/L (21-31)
[2021-04-04] MEDS: ALBUTEROL/IPRATROPIUM 3 ML AMPUL INH (23:16)
[2021-04-05] VITALS (39 sets, daily range): BP systolic 101–196; BP diastolic 56–81; PULSE 50–87; RESP 16–35; TEMP 1–37.1; O2SAT 87–97; BMI 47.5
[2021-04-05] MEDS: methylPREDNISolone 125 MG/2 ML VIAL 60 MG IV ×2 (01:22→09:05)
--- NOTE | 2021-04-05 01:24 | PC.NURSE ---
Vital signs are all on bipap from 1900-present time.
[2021-04-05 02:19] LABS: pH ABG 7.31 (7.35-7.45)
[2021-04-05 02:20] LABS: Fractionated Inspired Oxygen 35; HCO3 ABG 44 mmol/L (22-26); Oxygen Saturation ABG 93 % (95-100); TCO2 ABG 46 mmol/L (21-31)
[2021-04-05] MEDS: ALBUTEROL/IPRATROPIUM 3 ML AMPUL INH ×5 (02:32→20:44)
--- NOTE | 2021-04-05 02:34 | RT ---
At 0210, increased IPAP to 23 per recent ABG results.
[2021-04-05 04:53] LABS: Add Manual Diff / Slide Review NO; Basophils Absolute Auto 0 /uL (0-100); Basophils Percent Auto 0.2 % (0-2); Eosinophils Absolute Auto 0 /uL (0-450); Eosinophils Percent Auto 0.1 % (2-4); Hematocrit 36.4 % (41-53); Hemoglobin 11.1 g/dL (13.5-17.5); Lymphocytes Absolute Auto 500 /uL (1100-4500); Lymphocytes Percent Auto 8.8 % (25-40); Mean Corpuscular HGB Conc 30.5 % (30-36); Mean Corpuscular Hemoglobin 24.7 PG (26-34); Mean Corpuscular Volume 80.9 fL (80-100); Monocytes Absolute Auto 100 /uL (0-900); Neutrophils Absolute Auto 5200 /uL (1500-7000); Neutrophils Percent Auto 89.9 % (50-75); Platelet Count 213 X10^3/uL (150-400); Red Cell Distribution Width 21.1 % (11.6-14.8); White Blood Cell Count 5.8 X10^3/uL (4.5-11.0)
[2021-04-05 05:06] LABS: Alanine Aminotransferase 13 IU/L (<50); Albumin 3.3 g/dL (3.5-5.0); Alkaline Phosphatase 96 U/L (38-126); Aspartate Aminotransferase 20 IU/L (17-59); BUN Creatinine Ratio 34.8 (6-22); Bilirubin Total 0.4 mg/dL (0.2-1.3); Blood Urea Nitrogen 32 mg/dL (9-20); Calcium 8.7 mg/dL (8.4-10.2); Chloride 93 mmol/L (98-107); Estimated Glomerular Filt Rate > 60.0 mL/min (>60); Globulin 3.4 g/dL (1.7-4.1); Glucose 149 mg/dL (80-110); HEMOLYSIS < 15 (0-50); Magnesium 1.9 mg/dL (1.6-2.3); Potassium 4.9 mmol/L (3.4-5.1); Sodium 141 mmol/L (137-145); Total Protein 6.7 g/dL (6.3-8.2)
[2021-04-05 05:16] LABS: Carbon Dioxide 44 mmol/L (22-32)
[2021-04-05 05:21] LABS: Anisocytosis 2+; Polychromasia 1+
[2021-04-05] MEDS: ENOXAPARIN 40 MG/0.4 ML SYRINGE SUBCUT (09:05)
[2021-04-05] MEDS: DOCUSATE 100 MG CAPSULE PO ×2 (09:06→20:04)
[2021-04-05] MEDS: FAMOTIDINE 20 MG/2 ML VIAL 40 MG IV (09:10)
--- NOTE | 2021-04-05 09:23 | PC.NURSE ---
Patient given diet appropirate breakfast A 0920
[2021-04-05 12:03] LABS: HCO3 ABG 41 mmol/L (22-26); Oxygen Saturation ABG 91 % (95-100); PO2 ABG 64 mmHg (80-100); TCO2 ABG 43 mmol/L (21-31); pH ABG 7.39 (7.35-7.45)
[2021-04-05 12:04] LABS: Fractionated Inspired Oxygen 35
--- NOTE | 2021-04-05 12:15 | CM.SWNOTE ---
DCP/[employer] Assessment Note Patient is currently boarding in ED. Patient presents to ED with concern for recent GLF, muscle pain. Patient is 70 y/o male who resides alone at home. Patient has Medicare A, for Life and [facility]. Patient's PCP is Dr. Orlando Orantes in [place], [place] through [facility]. It is reported that patient uses BiPAP to sleep. Patient has hx of Hypercapnic Respiratory failure. Patient was admitted at [facility] on 02/19/21 until 03/25/21 awaiting SN[facility]. Patient has son that resides locally. Patient presents as A/Ox4 and endorses that he is feeling better. Patient denies HH or caregiver support if d/c'd to home. Patient denied anything further from [employer]. Plan: Patient is boarding in ED, admitted by hospitalist Dr. Sarah Gonzalez, POC pending bed availability in acute care. [employer] to f/u with POC. LOVE Ibarra Discharge Planning/Care Management CM Discharge Assessment Start: 04/05/21 12:08 Freq: Status: Active Protocol: Document 04/05/21 12:08 LN (Rec: 04/05/21 12:15 LN [id number]) Discharge Planning Assessment Assigned Clinical Supervisor LOVE Yates Advance Directives? No History Provided By Patient,Medical Record Has Patient been admitted in last 30 Yes days? Comment at [facility] from 02[facility]19/21 [facility] but ended up d/c'd to home Prior Living Arrangements House Household Members none Type of transporation used prior to Drives own vehicle admit Is patient alert and oriented? Yes DME Already Rented / Owned Other Patient has home O2 Comment Patient denies need for SNF or HH. Review Status In Process Please Provide Date Initial DC 04/05/21 Assessment Was Performed Next Review Type Continued Stay Review
[2021-04-05] MEDS: INSULIN LISPRO 100 UNIT/ML 3ML VIAL SUBCUT ×3 (12:52→19:58)
[2021-04-05 14:49] LABS: PCO2 ABG 68.4 mmHg (35-45); pH ABG 7.39 (7.35-7.45)
[2021-04-05 14:50] LABS: Fractionated Inspired Oxygen 34; HCO3 ABG 41 mmol/L (22-26); Oxygen Saturation ABG 94 % (95-100); PO2 ABG 75 mmHg (80-100); TCO2 ABG 43 mmol/L (21-31)
--- NOTE | 2021-04-05 15:49 | PM.PN.1 ---
Subjective Subjective Date Patient Seen: 04/05/21 Interval history: 70 y/o male with morbid obesity, obesity hypoventialtion syndrome, rodger,COPD, hypercapnic respiratory failure admitted to the hospital with metabolic encephalopathy secondary to hypercapnea. Patient was placed on bipap last night with improvement of his symptoms. He was discharged from [facility] on March 25 following a similar presentation. Patient by report had failure to thrive, a broken Bipap machine, and his home was unkempt such that the son called [facility]. They attempted placement at a SNF and were unsuccessful. Today he is awake and alert and has no specific complaints. Exam Vital Signs (past 8 hours): - 04/05/21 08:00 04/05/21 08:30 04/05/21 09:00 Temperature Pulse Rate 72 79 79 Respiratory Rate 24 24 26 H Blood Pressure 142/81 H 155/65 H Pulse Oximetry 93 93 93 04/05/21 09:30 04/05/21 10:00 04/05/21 10:30 Temperature Pulse Rate 83 78 75 Respiratory Rate 27 H 35 H 34 H Blood Pressure 148/68 H Pulse Oximetry 92 92 92 04/05/21 11:00 04/05/21 11:30 04/05/21 11:48 Temperature Pulse Rate 78 82 79 Respiratory Rate 27 H 34 H Blood Pressure 151/68 H 196/81 H Pulse Oximetry 93 93 91 04/05/21 12:00 04/05/21 12:30 04/05/21 13:00 Temperature Pulse Rate 76 77 79 Respiratory Rate 25 H 32 H 33 H Blood Pressure 179/73 H Pulse Oximetry 92 92 93 04/05/21 13:06 04/05/21 13:30 04/05/21 14:00 Temperature Pulse Rate 77 85 87 Respiratory Rate 21 32 H 27 H Blood Pressure Pulse Oximetry 94 91 91 04/05/21 14:37 Temperature 98.8 F Pulse Rate 87 Respiratory Rate 21 Blood Pressure 101/58 L Pulse Oximetry Fraction of Inspired Oxygen 35 Oxygen Delivery Method Nasal Cannula Oxygen Flow Rate 3.5 Narrative Exam Narrative: obese male lying in bed in no acute distress Resp Other: Decreased breath sounds Cardio Other: RRR nl Sl S2 3/6 EUGENIA GI Other: Abd: soft/ non tender/non distended Extrem Other: 3+ pitting edema bilaterally Objective Labs Result Diagrams: 04/05/21 04:35 04/05/21 04:35 Labs: Laboratory Results - last 24 hr 04/04/21 04/04/21 04/04/21 16:11 16:29 19:07 WBC RBC Hgb Hct MCV MCH MCHC RDW Plt Count Neut % (Auto) Lymph % (Auto) [place] % (Auto) Eos % (Auto) Baso % (Auto) Neut # (Auto) Lymph # (Auto) [place] # (Auto) Eos # (Auto) Baso # (Auto) RBC Morphology Polychromasia Anisocytosis ABG pH 7.27 L* 7.26 L* ABG pCO2 98.1 H* 96.9 H* ABG pO2 67 L 96 ABG HCO3 45 H 43 H ABG Total CO2 48 H 46 H ABG O2 Saturation 88 L 95 ABG Base Excess 18.0 H 16.0 H FiO2 32 40 Sodium Potassium Chloride Carbon Dioxide BUN Creatinine Estimated GFR BUN/Creatinine Ratio Glucose Calcium Magnesium Total Bilirubin AST ALT Alkaline Phosphatase Total Protein Albumin Globulin Albumin/Globulin Ratio SARS-CoV-2 (PCR) Negative 04/04/21 04/05/21 04/05/21 22:07 02:07 04:35 WBC 5.8 RBC 4.50 Hgb 11.1 L Hct 36.4 L MCV 80.9 MCH 24.7 L MCHC 30.5 RDW 21.1 H Plt Count 213 Neut % (Auto) 89.9 H Lymph % (Auto) 8.8 L [place] % (Auto) 1.0 L Eos % (Auto) 0.1 L Baso % (Auto) 0.2 Neut # (Auto) 5200 Lymph # (Auto) 500 L [place] # (Auto) 100 Eos # (Auto) 0 Baso # (Auto) 0 RBC Morphology See below Polychromasia 1+ H Anisocytosis 2+ H ABG pH 7.31 L 7.31 L ABG pCO2 86.8 H* 86.3 H* ABG pO2 72 L 77 L ABG HCO3 44 H 44 H ABG Total CO2 46 H 46 H ABG O2 Saturation 91 L 93 L ABG Base Excess 17.0 H 18.0 H FiO2 32 35 Sodium Potassium Chloride Carbon Dioxide BUN Creatinine Estimated GFR BUN/Creatinine Ratio Glucose Calcium Magnesium Total Bilirubin AST ALT Alkaline Phosphatase Total Protein Albumin Globulin Albumin/Globulin Ratio SARS-CoV-2 (PCR) 04/05/21 04/05/21 04/05/21 04:35 07:20 12:59 WBC RBC Hgb Hct MCV MCH MCHC RDW Plt Count Neut % (Auto) Lymph % (Auto) [place] % (Auto) Eos % (Auto) Baso % (Auto) Neut # (Auto) Lymph # (Auto) [place] # (Auto) Eos # (Auto) Baso # (Auto) RBC Morphology Polychromasia Anisocytosis ABG pH 7.39 7.39 ABG pCO2 67.0 H* 68.4 H* ABG pO2 64 L 75 L ABG HCO3 41 H 41 H ABG Total CO2 43 H 43 H ABG O2 Saturation 91 L 94 L ABG Base Excess 16.0 H 16.0 H FiO2 35 34 Sodium 141 Potassium 4.9 Chloride 93 L Carbon Dioxide 44 H* BUN 32 H Creatinine 0.92 Estimated GFR > 60.0 BUN/Creatinine Ratio 34.8 H Glucose 149 H Calcium 8.7 Magnesium 1.9 Total Bilirubin 0.4 AST 20 ALT 13 Alkaline Phosphatase 96 Total Protein 6.7 Albumin 3.3 L Globulin 3.4 Albumin/Globulin Ratio 1.0 SARS-CoV-2 (PCR) [facility] Social History household members: none Smoking Status: Never smoker alcohol intake: former Assessment & Plan Assessment & Plan narrative: 1. Acute hypoxic hypercapnic respiratory failure -multifactorial, likely secondary to obesity hypoventilation, obstructive sleep apnea, COPD and congestive heart failure ( Echo revealed preserved EF, no pulmonary hypertension, mild aortic stenosis) -suspect underlying right heart failure -continue BiPAP -continue diuresis 2. Metabolic Encephalopathy -secondary to CO2 retention -improved today with improved CO2 3. Morbid Obesity -chronic/dietary consultation 4. Chronic Venous Stasis changes -continue lasix 5. Type 2 diabetes continue insulin 6. Self Neglect-patient may not be safe for discharge home PT/OT consultation I have utilized all available methods to review, update, and confirm the patients current medications. Time Spent With Patient Critical Care time: I spent a total of [] minutes of critical care time on this patient's care today; this time is exclusive of procedural time. Quality VTE Deep Vein Thrombosis/Pulmonary Embolism Present on Admission: No
[2021-04-05] MEDS: NYSTATIN POWDER 15GM 1 APPLIC TOP (16:47)
[2021-04-05 17:03] LABS: Procalcitonin 0.06 ng/mL (<0.5)
--- NOTE | 2021-04-05 19:49 | PC.NURSE ---
late note: pt on 2L 92%. cont pulse ox. family at bedside. pt has been suspicious ever since he got to AC. pt confused and forgetful. pt transferred to ICU for bipap use
[2021-04-05] MEDS: INSULIN GLARGINE 100 UNIT/ML 3ML PEN 20 UNIT SUBCUT (19:57)
[2021-04-05] MEDS: SERTRALINE 50 MG TABLET 200 MG PO (20:03)
[2021-04-05] MEDS: ATORVASTATIN 20 MG TABLET 80 MG PO (20:03)
[2021-04-05] MEDS: NYSTATIN CREAM 30 GM 1 APPLIC TOP (20:04)
[2021-04-05] MEDS: DOXYCYCLINE HYCLATE 100 MG TABLET PO (20:04)
[2021-04-05] MEDS: ACETAMINOPHEN 325 MG TABLET 650 MG PO (20:04)
--- NOTE | 2021-04-05 21:28 | P.TELICUCN_ITS ---
History of Present Illness Consult details Date Patient Seen: 04/05/21 Chief complaint: Weakness Reason for consult: Acute on chronic hypercapnic respiratory failure needing BiPAP Narrative: 70 yo morbidly obese (BMI 47) male presented to the ED w ALOC, noted to have mild compensated acute on chronic hypercapnic respiratory failure. Patient had [id number] to 90 but bicarb in mid 40s, thus was pretty well compensated and pH was 7.31. Serial ABG shows improvement of his pH to 7.38. Due to him needing to be on BiPAP, he was moved to the ICU. Pt apparently has known VALERIE/OHS but doesnt have a BiPAP machine yet. In the ICU he is on 27/09. He was COVID negative [facility] Social History household members: none Smoking Status: Never smoker alcohol intake: former Current Medications Current Medications Medications: Home Medications aspirin 81 mg capsule 81 mg PO DAILY 04/05/21 [History Confirmed 04/05/21] atorvastatin 80 mg tablet 80 mg PO DAILY 04/05/21 [History Confirmed 04/05/21] empagliflozin 25 mg tablet 12.5 mg PO DAILY 04/05/21 [History Confirmed 04/05/21] furosemide 40 mg tablet (Lasix) 40 mg PO DAILY 04/05/21 [History Confirmed 04/05/21] insulin aspart U-100 100 unit/mL subcutaneous solution (Novolog U-100 Insulin aspart) 7 unit SUBCUT TIDWM 04/05/21 [History Confirmed 04/05/21] insulin glargine 100 unit/mL subcutaneous solution 30 unit SUBCUT BID 04/05/21 [History Confirmed 04/05/21] losartan 100 mg tablet 100 mg PO DAILY 04/05/21 [History Confirmed 04/05/21] metformin 1,000 mg tablet 1,000 mg PO BID 04/05/21 [History Confirmed 04/05/21] sertraline 200 mg capsule 200 mg PO DAILY 04/05/21 [History Confirmed 04/05/21] tamsulosin 0.4 mg capsule (Flomax) 0.8 mg PO BEDTIME 04/05/21 [History Confirmed 04/05/21] Visit Medications (administered) Generic Name Dose Route Start Last Admin Trade Name Freq PRN Reason Stop Dose Admin Acetaminophen 650 mg 04/04/21 17:06 04/05/21 20:04 Acetaminophen 325 Mg Tablet PO 650 mg Q6HR PRN Administration Fever/Mild Pain (1-3) Atorvastatin Calcium 80 mg 04/05/21 21:00 04/05/21 20:03 Atorvastatin 20 Mg Tablet PO 80 mg BEDTIME PEPPER Administration Docusate Sodium 100 mg 04/04/21 21:00 04/05/21 20:04 Docusate 100 Mg Capsule PO 100 mg BID PEPPER Administration Doxycycline Hyclate 100 mg 04/05/21 21:00 04/05/21 20:04 Doxycycline Hyclate 100 Mg Tablet PO 100 mg BID PEPPER Administration Enoxaparin Sodium 40 mg 04/05/21 09:00 04/05/21 09:05 Enoxaparin 40 Mg/0.4 Ml Syringe SUBCUT 40 mg DAILY PEPPER Administration Insulin Glargine 20 unit 04/05/21 21:00 04/05/21 19:57 Insulin Glargine 100 Unit/Ml 3ml Pen SUBCUT 20 unit BEDTIME PEPPER Administration Insulin Human Lispro 0 unit 04/04/21 21:00 04/05/21 19:58 Insulin Lispro 100 Unit/Ml 3ml Vial SUBCUT 1 unit ACHS PEPPER Administration Protocol Nystatin 1 applic 04/05/21 15:00 04/05/21 20:04 Nystatin Cream 30 Gm TOP 1 applic TID PEPPER Administration Nystatin 1 applic 04/05/21 14:44 04/05/21 16:47 Nystatin Powder 15gm TOP 1 applic TID PRN Administration Rash Sertraline HCl 200 mg 04/05/21 21:00 04/05/21 20:03 Sertraline 50 Mg Tablet PO 200 mg BEDTIME PEPPER Administration Exam Vital Signs (past 8 hours): - 04/05/21 13:30 04/05/21 14:00 04/05/21 14:37 Temperature 98.8 F Pulse Rate 85 87 87 Respiratory Rate 32 H 27 H 21 Blood Pressure 101/58 L Pulse Oximetry 91 91 04/05/21 17:00 Temperature Pulse Rate Respiratory Rate Blood Pressure Pulse Oximetry 92 Fraction of Inspired Oxygen 35 Oxygen Delivery Method Nasal Cannula Oxygen Flow Rate 2 Objective Labs Result Diagrams: 04/05/21 04:35 04/05/21 04:35 Labs: Laboratory Results - last 24 hr 04/04/21 04/05/21 04/05/21 22:07 02:07 04:35 WBC 5.8 RBC 4.50 Hgb 11.1 L Hct 36.4 L MCV 80.9 MCH 24.7 L MCHC 30.5 RDW 21.1 H Plt Count 213 Neut % (Auto) 89.9 H Lymph % (Auto) 8.8 L [place] % (Auto) 1.0 L Eos % (Auto) 0.1 L Baso % (Auto) 0.2 Neut # (Auto) 5200 Lymph # (Auto) 500 L [place] # (Auto) 100 Eos # (Auto) 0 Baso # (Auto) 0 RBC Morphology See below Polychromasia 1+ H Anisocytosis 2+ H ABG pH 7.31 L 7.31 L ABG pCO2 86.8 H* 86.3 H* ABG pO2 72 L 77 L ABG HCO3 44 H 44 H ABG Total CO2 46 H 46 H ABG O2 Saturation 91 L 93 L ABG Base Excess 17.0 H 18.0 H FiO2 32 35 Sodium Potassium Chloride Carbon Dioxide BUN Creatinine Estimated GFR BUN/Creatinine Ratio Glucose Calcium Magnesium Total Bilirubin AST ALT Alkaline Phosphatase Total Protein Albumin Globulin Albumin/Globulin Ratio Procalcitonin 04/05/21 04/05/21 04/05/21 04:35 04:35 07:20 WBC RBC Hgb Hct MCV MCH MCHC RDW Plt Count Neut % (Auto) Lymph % (Auto) [place] % (Auto) Eos % (Auto) Baso % (Auto) Neut # (Auto) Lymph # (Auto) [place] # (Auto) Eos # (Auto) Baso # (Auto) RBC Morphology Polychromasia Anisocytosis ABG pH 7.39 ABG pCO2 67.0 H* ABG pO2 64 L ABG HCO3 41 H ABG Total CO2 43 H ABG O2 Saturation 91 L ABG Base Excess 16.0 H FiO2 35 Sodium 141 Potassium 4.9 Chloride 93 L Carbon Dioxide 44 H* BUN 32 H Creatinine 0.92 Estimated GFR > 60.0 BUN/Creatinine Ratio 34.8 H Glucose 149 H Calcium 8.7 Magnesium 1.9 Total Bilirubin 0.4 AST 20 ALT 13 Alkaline Phosphatase 96 Total Protein 6.7 Albumin 3.3 L Globulin 3.4 Albumin/Globulin Ratio 1.0 Procalcitonin 0.06 04/05/21 12:59 WBC RBC Hgb Hct MCV MCH MCHC RDW Plt Count Neut % (Auto) Lymph % (Auto) [place] % (Auto) Eos % (Auto) Baso % (Auto) Neut # (Auto) Lymph # (Auto) [place] # (Auto) Eos # (Auto) Baso # (Auto) RBC Morphology Polychromasia Anisocytosis ABG pH 7.39 ABG pCO2 68.4 H* ABG pO2 75 L ABG HCO3 41 H ABG Total CO2 43 H ABG O2 Saturation 94 L ABG Base Excess 16.0 H FiO2 34 Sodium Potassium Chloride Carbon Dioxide BUN Creatinine Estimated GFR BUN/Creatinine Ratio Glucose Calcium Magnesium Total Bilirubin AST ALT Alkaline Phosphatase Total Protein Albumin Globulin Albumin/Globulin Ratio Procalcitonin Assessment & Plan Assessment and plan (1) Acute and chronic respiratory failure with hypercapnia: Status: Acute Plan: -Continue BiPAP, wean O2 to keep sats low 90s -Would Dec IPAP to 15 and PEEP to 5. I tend to not have pts on high IPAP unless sleep studies have documented the need for a higher IPAP, in order to avoid ga stric insufflation. (2) Morbid obesity: Status: Acute Plan: -Would increase his DVT prophylaxis dose of lovenox to 40 BID due to extreme weight (3) Peripheral edema: Status: Acute Plan: Per nursing he has sig BLE edema including scrotal edema. I would diurese him. He has been ordered lasix 40 PO BID to start in AM, I would give him a dose of 40mg IVP tonight COVID-19 COVID-19 status: Negative Result date/Date tested (Pos, Neg/Pending): 04/04/21 Time Spent With Patient Critical Care time: I spent a total of [45] minutes of critical care time on this patient's care today; this time is exclusive of procedural time.
[2021-04-06] VITALS (19 sets, daily range): BP systolic 150–171; BP diastolic 66–76; PULSE 61–78; RESP 15–24; TEMP 36.2–36.8; O2SAT 89–99
[2021-04-06] MEDS: FUROSEMIDE 40 MG/4 ML VIAL IV
[2021-04-06 05:05] LABS: Add Manual Diff / Slide Review NO; Basophils Absolute Auto 100 /uL (0-100); Basophils Percent Auto 0.8 % (0-2); Eosinophils Absolute Auto 100 /uL (0-450); Eosinophils Percent Auto 0.9 % (2-4); Hematocrit 36.8 % (41-53); Hemoglobin 11.3 g/dL (13.5-17.5); Lymphocytes Absolute Auto 1600 /uL (1100-4500); Lymphocytes Percent Auto 19.5 % (25-40); Mean Corpuscular HGB Conc 30.8 % (30-36); Mean Corpuscular Hemoglobin 24.7 PG (26-34); Mean Corpuscular Volume 80.3 fL (80-100); Monocytes Absolute Auto 600 /uL (0-900); Monocytes Percent Auto 7.4 % (3-14); Neutrophils Absolute Auto 5800 /uL (1500-7000); Neutrophils Percent Auto 71.4 % (50-75); Platelet Count 290 X10^3/uL (150-400); Red Blood Cell Count 4.58 X10^6/uL (4.5-5.9); Red Cell Distribution Width 21.6 % (11.6-14.8); White Blood Cell Count 8.1 X10^3/uL (4.5-11.0)
[2021-04-06 05:18] LABS: Alanine Aminotransferase 11 IU/L (<50); Albumin 3.5 g/dL (3.5-5.0); Albumin Globulin Ratio 1.1 (1.0-2.8); Alkaline Phosphatase 90 U/L (38-126); Aspartate Aminotransferase 17 IU/L (17-59); BUN Creatinine Ratio 33.1 (6-22); Bilirubin Total 0.3 mg/dL (0.2-1.3); Blood Urea Nitrogen 42 mg/dL (9-20); Calcium 8.7 mg/dL (8.4-10.2); Chloride 92 mmol/L (98-107); Estimated Glomerular Filt Rate 56.4 mL/min (>60); Globulin 3.1 g/dL (1.7-4.1); Glucose 179 mg/dL (80-110); HEMOLYSIS < 15 (0-50); Magnesium 2.1 mg/dL (1.6-2.3); Potassium 4.2 mmol/L (3.4-5.1); Sodium 140 mmol/L (137-145); Total Protein 6.6 g/dL (6.3-8.2)
[2021-04-06 05:30] LABS: Carbon Dioxide 44 mmol/L (22-32)
[2021-04-06 05:46] LABS: Anisocytosis 2+; Ovalocytes 1+; Polychromasia 1+
--- NOTE | 2021-04-06 06:37 | PC.NURSE ---
SHIFT NOC Report received, care assumed 1899. VSS on 2LNC. Denies pain. Upon intial contact, pt oriented but irritable and a little paranoid. Per son, he's not usually like that. Spent a significant time listening to him and meeting his requests as much as possible. Pt became calmer, expressed that he thought we would have a good night. He reported at 193 that he was ready for sleep, so I gave him his evening meds at 1999 and asked the RT to place him on his nighttime oxygen therapy. Placed on CPAP, tolerated well throughout the night. Experienced brief desaturations when oxygen tubing became disconnected from CPAP. Pt has a very large habitus with fungal skin infection in the pannus and inguinal folds. Also has 3-4+ edema from the groin/scrotum/penis all the way down to his toes. According to his H&P, has pulmonary edema with preserved ejection fraction. Also clearly has venous distention of the lower extremities. Legs are weeping, peeling, flaking. Lasix ordered for am; requested order from Dr. Borja to order a dose for the evening. Pt voiding in urinal while laying in bed, requires assistance.
[2021-04-06] MEDS: ALBUTEROL/IPRATROPIUM 3 ML AMPUL INH ×4 (08:58→20:29)
--- NOTE | 2021-04-06 09:25 | P.PN_ITS ---
Subjective Subjective Date Patient Seen: 04/06/21 Interval history: The patient is a 70-year-old male with obesity hypoventilation, obstructive sleep apnea, COPD, admitted to the hospital for acute hypercapnic respiratory failure. The patient has been placed on BiPAP with significant improvement in his oxygenation and mentation. He had an uneventful night. He is somewhat lethargic but arousable. Otherwise the patient has no acute complaints Exam Vital Signs (past 8 hours): - 04/06/21 02:00 04/06/21 05:00 04/06/21 06:00 Temperature 98 F 98.2 F Pulse Rate 68 61 Respiratory Rate 24 20 Blood Pressure 151/68 H 171/76 H Pulse Oximetry 94 94 92 04/06/21 08:58 Temperature Pulse Rate 64 Respiratory Rate 18 Blood Pressure Pulse Oximetry 94 Fraction of Inspired Oxygen 35 Oxygen Delivery Method Nasal Cannula Oxygen Flow Rate 2 Narrative Exam Narrative: Morbidly obese male lying in bed on BiPAP Resp Other: Lungs clear to auscultation, decreased breath sounds bilaterally Cardio Other: Cardiac exam: Regular rate and rhythm normal S1-S2 with a 2/6 systolic ejection murmur GI Other: Abdomen: Soft nontender nondistended Extrem Other: Extremity with 2+ edema bilaterally Objective Labs Result Diagrams: 04/06/21 04:39 04/06/21 04:39 Labs: Laboratory Results - last 24 hr 04/05/21 04/05/21 04/05/21 04:35 07:20 12:59 WBC RBC Hgb Hct MCV MCH MCHC RDW Plt Count Neut % (Auto) Lymph % (Auto) [place] % (Auto) Eos % (Auto) Baso % (Auto) Neut # (Auto) Lymph # (Auto) [place] # (Auto) Eos # (Auto) Baso # (Auto) RBC Morphology Polychromasia Anisocytosis Ovalocytes ABG pH 7.39 7.39 ABG pCO2 67.0 H* 68.4 H* ABG pO2 64 L 75 L ABG HCO3 41 H 41 H ABG Total CO2 43 H 43 H ABG O2 Saturation 91 L 94 L ABG Base Excess 16.0 H 16.0 H FiO2 35 34 Sodium Potassium Chloride Carbon Dioxide BUN Creatinine Estimated GFR BUN/Creatinine Ratio Glucose Calcium Magnesium Total Bilirubin AST ALT Alkaline Phosphatase Total Protein Albumin Globulin Albumin/Globulin Ratio Procalcitonin 0.06 04/06/21 04/06/21 04:39 04:39 WBC 8.1 RBC 4.58 Hgb 11.3 L Hct 36.8 L MCV 80.3 MCH 24.7 L MCHC 30.8 RDW 21.6 H Plt Count 290 Neut % (Auto) 71.4 Lymph % (Auto) 19.5 L [place] % (Auto) 7.4 Eos % (Auto) 0.9 L Baso % (Auto) 0.8 Neut # (Auto) 5800 Lymph # (Auto) 1600 [place] # (Auto) 600 Eos # (Auto) 100 Baso # (Auto) 100 RBC Morphology See below Polychromasia 1+ H Anisocytosis 2+ H Ovalocytes 1+ H ABG pH ABG pCO2 ABG pO2 ABG HCO3 ABG Total CO2 ABG O2 Saturation ABG Base Excess FiO2 Sodium 140 Potassium 4.2 Chloride 92 L Carbon Dioxide 44 H* BUN 42 H Creatinine 1.27 H Estimated GFR 56.4 L BUN/Creatinine Ratio 33.1 H Glucose 179 H Calcium 8.7 Magnesium 2.1 Total Bilirubin 0.3 AST 17 ALT 11 Alkaline Phosphatase 90 Total Protein 6.6 Albumin 3.5 Globulin 3.1 Albumin/Globulin Ratio 1.1 Procalcitonin [facility] Social History household members: none Smoking Status: Never smoker alcohol intake: former Assessment & Plan Assessment & Plan narrative: Acute hypoxic hypercapnic respiratory failure -multifactorial, likely secondary to obesity hypoventilation, obstructive sleep apnea, COPD and Pulmonary Edema ( Echo revealed preserved EF, no pulmonary hypertension, mild aortic stenosis) -no evidence to suggest Acute Heart Failure, suspect predominantly obesity/hypoventilation and VALERIE -continue BiPAP -continue diuresis 2. Metabolic Encephalopathy -secondary to CO2 retention -improved today with improved CO2 3. Morbid Obesity -chronic/dietary consultation 4. Chronic Venous Stasis changes -continue lasix 5. Type 2 diabetes continue insulin 6. Self Neglect-patient may not be safe for discharge home The patient has had 2 admissions in the last month related to progressive hypercapnia. Given history of self neglect at home I am concerned regarding his ability for self-care Will discuss with discharge planning/social work Will consult PT OT patient likely would benefit from SNF versus assisted living. Time Spent With Patient Critical Care time: I spent a total of [] minutes of critical care time on this patient's care today; this time is exclusive of procedural time. Quality VTE Deep Vein Thrombosis/Pulmonary Embolism Present on Admission: No
[2021-04-06] MEDS: LOSARTAN 50 MG TABLET PO ×2 (09:39→17:47)
[2021-04-06] MEDS: ENOXAPARIN 40 MG/0.4 ML SYRINGE SUBCUT ×2 (09:39→21:19)
[2021-04-06] MEDS: ASPIRIN EC 81 MG TABLET PO (09:39)
[2021-04-06] MEDS: predniSONE 20 MG TABLET 40 MG PO (09:39)
[2021-04-06] MEDS: DOCUSATE 100 MG CAPSULE PO ×2 (09:40→21:18)
[2021-04-06] MEDS: DOXYCYCLINE HYCLATE 100 MG TABLET PO ×2 (09:46→21:19)
[2021-04-06] MEDS: TAMSULOSIN 0.4 MG CAPSULE 0.8 MG PO (09:46)
[2021-04-06] MEDS: NYSTATIN CREAM 30 GM 1 APPLIC TOP ×2 (09:53→17:48)
--- NOTE | 2021-04-06 10:31 | P.TELICUPN_ITS ---
Subjective Subjective :: This patient was seen via real time interactive two-way audiovisual telecommunication. 70-year-old male with obesity hypoventilation, obstructive sleep apnea, COPD, [id number] to the hospital for acute on chronic hypercapnic respiratory failure.? The patient has been placed on BiPAP with significant improvement in his oxygenation and mentation. recent 24 hours: He is off BIPAP this morning and is currently on 2L nc. He was given Lasix and diuresed out >1 L net neg in last 24 hours. Cr increased from 0.89 to 1.27 Current Medications Current Medications Medications: Home Medications aspirin 81 mg capsule 81 mg PO DAILY 04/05/21 [History Confirmed 04/05/21] atorvastatin 80 mg tablet 80 mg PO DAILY 04/05/21 [History Confirmed 04/05/21] empagliflozin 25 mg tablet 12.5 mg PO DAILY 04/05/21 [History Confirmed 04/05/21] furosemide 40 mg tablet (Lasix) 40 mg PO DAILY 04/05/21 [History Confirmed 04/05/21] insulin aspart U-100 100 unit/mL subcutaneous solution (Novolog U-100 Insulin aspart) 7 unit SUBCUT TIDWM 04/05/21 [History Confirmed 04/05/21] insulin glargine 100 unit/mL subcutaneous solution 30 unit SUBCUT BID 04/05/21 [History Confirmed 04/05/21] losartan 100 mg tablet 100 mg PO DAILY 04/05/21 [History Confirmed 04/05/21] metformin 1,000 mg tablet 1,000 mg PO BID 04/05/21 [History Confirmed 04/05/21] sertraline 200 mg capsule 200 mg PO DAILY 04/05/21 [History Confirmed 04/05/21] tamsulosin 0.4 mg capsule (Flomax) 0.8 mg PO BEDTIME 04/05/21 [History Confirmed 04/05/21] Visit Medications (administered) Generic Name Dose Route Start Last Admin Trade Name Freq PRN Reason Stop Dose Admin Acetaminophen 650 mg 04/04/21 17:06 04/05/21 20:04 Acetaminophen 325 Mg Tablet PO 650 mg Q6HR PRN Administration Fever/Mild Pain (1-3) Albuterol/Ipratropium 3 ml 04/06/21 09:00 04/06/21 08:58 Albuterol/Ipratropium 3 Ml Ampul INH 3 ml [id number] PEPPER Administration Aspirin 81 mg 04/06/21 09:00 04/06/21 09:39 Aspirin Ec 81 Mg Tablet PO 81 mg DAILY PEPPER Administration Atorvastatin Calcium 80 mg 04/05/21 21:00 04/05/21 20:03 Atorvastatin 20 Mg Tablet PO 80 mg BEDTIME PEPPER Administration Docusate Sodium 100 mg 04/04/21 21:00 04/06/21 09:40 Docusate 100 Mg Capsule PO 100 mg BID PEPPER Administration Doxycycline Hyclate 100 mg 04/05/21 21:00 04/06/21 09:46 Doxycycline Hyclate 100 Mg Tablet PO 100 mg BID PEPPER Administration Enoxaparin Sodium 40 mg 04/06/21 09:30 04/06/21 09:39 Enoxaparin 40 Mg/0.4 Ml Syringe SUBCUT 40 mg BID PEPPER Administration Insulin Glargine 20 unit 04/05/21 21:00 04/05/21 19:57 Insulin Glargine 100 Unit/Ml 3ml Pen SUBCUT 20 unit BEDTIME PEPPER Administration Insulin Human Lispro 0 unit 04/04/21 21:00 04/06/21 09:47 Insulin Lispro 100 Unit/Ml 3ml Vial SUBCUT Not Given ACHS [facility] Protocol Losartan Potassium 50 mg 04/06/21 09:00 04/06/21 09:39 Losartan 50 Mg Tablet PO 50 mg DAILY PEPPER Administration Nystatin 1 applic 04/05/21 15:00 04/06/21 09:53 Nystatin Cream 30 Gm TOP 1 applic TID PEPPER Administration Nystatin 1 applic 04/05/21 14:44 04/05/21 16:47 Nystatin Powder 15gm TOP 1 applic TID PRN Administration Rash Prednisone 40 mg 04/06/21 09:00 04/06/21 09:39 Prednisone 20 Mg Tablet PO 40 mg DAILY PEPPER Administration Sertraline HCl 200 mg 04/05/21 21:00 04/05/21 20:03 Sertraline 50 Mg Tablet PO 200 mg BEDTIME PEPPER Administration Tamsulosin HCl 0.8 mg 04/06/21 09:00 04/06/21 09:46 Tamsulosin 0.4 Mg Capsule PO 0.8 mg DAILY PEPPER Administration Objective Labs Result Diagrams: 04/06/21 04:39 04/06/21 04:39 Labs: Laboratory Results - last 24 hr 04/05/21 04/05/21 04/05/21 04:35 07:20 12:59 WBC RBC Hgb Hct MCV MCH MCHC RDW Plt Count Neut % (Auto) Lymph % (Auto) [place] % (Auto) Eos % (Auto) Baso % (Auto) Neut # (Auto) Lymph # (Auto) [place] # (Auto) Eos # (Auto) Baso # (Auto) RBC Morphology Polychromasia Anisocytosis Ovalocytes ABG pH 7.39 7.39 ABG pCO2 67.0 H* 68.4 H* ABG pO2 64 L 75 L ABG HCO3 41 H 41 H ABG Total CO2 43 H 43 H ABG O2 Saturation 91 L 94 L ABG Base Excess 16.0 H 16.0 H FiO2 35 34 Sodium Potassium Chloride Carbon Dioxide BUN Creatinine Estimated GFR BUN/Creatinine Ratio Glucose Calcium Magnesium Total Bilirubin AST ALT Alkaline Phosphatase Total Protein Albumin Globulin Albumin/Globulin Ratio Procalcitonin 0.06 04/06/21 04/06/21 04:39 04:39 WBC 8.1 RBC 4.58 Hgb 11.3 L Hct 36.8 L MCV 80.3 MCH 24.7 L MCHC 30.8 RDW 21.6 H Plt Count 290 Neut % (Auto) 71.4 Lymph % (Auto) 19.5 L [place] % (Auto) 7.4 Eos % (Auto) 0.9 L Baso % (Auto) 0.8 Neut # (Auto) 5800 Lymph # (Auto) 1600 [place] # (Auto) 600 Eos # (Auto) 100 Baso # (Auto) 100 RBC Morphology See below Polychromasia 1+ H Anisocytosis 2+ H Ovalocytes 1+ H ABG pH ABG pCO2 ABG pO2 ABG HCO3 ABG Total CO2 ABG O2 Saturation ABG Base Excess FiO2 Sodium 140 Potassium 4.2 Chloride 92 L Carbon Dioxide 44 H* BUN 42 H Creatinine 1.27 H Estimated GFR 56.4 L BUN/Creatinine Ratio 33.1 H Glucose 179 H Calcium 8.7 Magnesium 2.1 Total Bilirubin 0.3 AST 17 ALT 11 Alkaline Phosphatase 90 Total Protein 6.6 Albumin 3.5 Globulin 3.1 Albumin/Globulin Ratio 1.1 Procalcitonin Exam Vital Signs (past 8 hours): - 04/06/21 05:00 04/06/21 06:00 04/06/21 08:58 Temperature 98.2 F Pulse Rate 61 64 Respiratory Rate 20 18 Blood Pressure 171/76 H Pulse Oximetry 94 92 94 Fraction of Inspired Oxygen 35 Oxygen Delivery Method Nasal Cannula Oxygen Flow Rate 2 Quality TeleICU VTE Deep Vein Thrombosis/Pulmonary Embolism Present on Admission: No Assessment & Plan Assessment & Plan narrative: Assessment: Acute on chronic hypercapic respiratory failure VALERIE/OHS Obesity T2DM Plan: -BIPAP when sleeping or prn increased CO2 retention -ABG prn increasd lethargy to look for increased CO2 retention -hold Lasix for now -obtain Limited ECHO to evaluate IVC to help assess intravascular volume status -if IVC not small/collapsible, can consider Diamox (given elevated HCO3) with prn albumin -continue empiric antibiotics and f/u on cultures -wean steroids as tolerated Discussed my recommendations with Dr. Espino CCT 45 min Time Spent With Patient Critical Care time: I spent a total of [] minutes of critical care time on this patient's care today; this time is exclusive of procedural time.
[2021-04-06 11:26] LABS: Procalcitonin 0.08 ng/mL (<0.5)
--- NOTE | 2021-04-06 12:02 | DI.ECHO.S_ITS ---
[facility]---------+ [facility] +---------+ : : [address] : : : : [id number] : : : : Phone: [phone]+ Echocardiogram Report + + :Name: ELLIE MARIA Study Date: 04/06/2021 Height: 71 in : :[facility] ReadingLocation: Weight: 340 lb : : Gender: Male BSA: 2.6 m2 : :: 1950 Age: 70 yrs BP: 162/74 mmHg: :Reason For Study: IVC COLLAPSE : :Ordering Physician: CAYLA, : :MALLIKA Performed By: Airam Jason : :Referring: MALLIKA KULKARNI : + + Interpretation Summary 1) Normal left ventricular thickness, size, wall motion, and systolic function (EF 60-65%). 2) The right ventricle is mildly dilated. Right ventricular systolic function is mildly reduced. 3) Diastolic parameters suggest a pseudonormalization pattern, consistent with probable elevated filling pressures. 4) There is moderate aortic stenosis (valve area 1.1cm2, mean gradient 25mmHg, severity ratio 0.27). 5) The right ventricular systolic pressure is estimated to be at least 54 mmHg based on an estimated right atrial pressure of 15 mm Hg. 6) Hypertension present during the study (BP 162/74mmHg). 7) No prior Echo available for comparison. Procedure: A two-dimensional transthoracic echocardiogram with color flow and Doppler was performed. The study quality was technically difficult. There is no prior echocardiogram noted for this patient. The patient was in sinus rhythm with heart rates between 73-87 bpm during the exam. Left Ventricle: The left ventricle is normal in size and wall thickness. The ejection fraction is estimated to be 60-65%. Left ventricular systolic function appears normal without focal wall motion abnormalities. Diastolic parameters suggest a pseudonormalization pattern, consistent with probable elevated filling pressures. Right Ventricle: The right ventricle is mildly dilated. Right ventricular systolic function is mildly reduced. Atria: The left atrium is moderately dilated. Right atrial size is normal. There is no Doppler evidence for an interatrial shunt. Mitral Valve: The mitral valve leaflets are mildly calcified. There is mild mitral annular calcification. There is trace mitral regurgitation. Aortic Valve: The aortic valve is moderately calcified. There is moderate aortic stenosis. The peak aortic velocity is 3.31 m/sec. The aortic valve mean gradient is 24 mmHg. The calculated aortic valve area is 1.2 cm2. There is trace aortic regurgitation. Tricuspid Valve: The tricuspid valve is not well visualized, but is grossly normal. The right ventricular systolic pressure is estimated to be at least 54 mmHg based on an estimated right atrial pressure of 15 mm Hg. There is mild tricuspid regurgitation. Pulmonic Valve: The pulmonic valve is not well visualized. Great Vessels: The aortic root is normal size. The dimensions of the ascending aorta are normal. The IVC is dilated (diameter is greater than 2.1 cm) and it collapses less than 50% with a sniff. This suggests a high right atrial pressure of 15 mm Hg. Pericardium/ Pleura There is no pericardial effusion. There is no pleural effusion. MMode/2D Measurements & Calculations LVIDd: 5.7 cm LVOT diam: 2.3 cm LVIDs: 3.6 cm Ao root diam: 3.5 cm FS: 37.0 % asc Aorta Diam: 3.1 cm IVSd: 0.96 cm Ao Arch Diam (Prox Trans): 3.4 cm LVPWd: 1.3 cm LV lopez. diameter/BSA (cm/m^2): 2.2 LV sys. diameter/BSA (cm/m^2): 1.4 LA A2 area: 28.2 cm2 RA long axis: 5.8 cm LA A4 area: 31.0 cm2 RA area: 23.3 cm2 LA length (vol): 6.6 cm RA vol: 79.6 ml LA vol: 111.6 ml RA : 30.1 ml/m2 LA vol index: 42.2 ml/m2 IVC diam: 3.0 cm RVD1 (basal): 4.8 cm TAPSE: 1.8 cm Doppler Measurements & Calculations Ao V2 max: 331.7 cm/sec LVOT Max Isaiah: 96.3 cm/sec Ao V2 mean: 219.4 cm/sec LV V1 max P.7 mmHg Ao max P.4 mmHg LV V1 VTI: 19.2 cm Ao mean P.7 mmHg JESSENIA(I,D): 1.1 cm2 Ao V2 VTI: 70.1 cm JESSENIA(V,D): 1.2 cm2 sev ratio: 0.27 JESSENIA indexed to BSA (cm^2/m^2): 0.41 MV E max isaiah: 142.8 cm/sec TR max isaiah: 314.1 cm/sec MV A max isaiah: 61.3 cm/sec TR max P.5 mmHg MV E/A: 2.3 PA V2 max: 137.1 cm/sec Med Peak E' Isaiah: 7.9 cm/sec PA V2 mean: 92.3 cm/sec E/E' med: 18.1 PA mean P.8 mmHg Lat Peak E' Isaiah: 9.2 cm/sec PA pr(Accel): 34.5 mmHg E/E' lat: 15.6 E/e' average: 16.9 MV dec time: 0.23 sec MVA(VTI): 2.2 cm2 MV V2 mean: 81.3 cm/sec SV(LVOT): 76.5 ml MV mean P.5 mmHg MV V2 VTI: 35.3 cm Reading Physician:04:10 PM
[2021-04-06] MEDS: ACETAMINOPHEN 325 MG TABLET 650 MG PO (12:42)
[2021-04-06] MEDS: INSULIN LISPRO 100 UNIT/ML 3ML VIAL SUBCUT ×3 (12:43→21:33)
[2021-04-06] MEDS: NYSTATIN POWDER 15GM 1 APPLIC TOP ×2 (17:48→21:32)
--- NOTE | 2021-04-06 18:30 | PC.NURSE ---
PT MEDICATED X 1 THIS SHIFT FOR C/O GENERAL DISCOMFORT WITH 650MG PO ACETAMINOPHEN - WHICH WAS EFFECTIVE - TAKING DIET WELL - USING URINAL OR BSC TO VOID- TELE NSR WITH 1ST DEGREE AVB- 3+ PITTING EDEMA FROM WAIST DOWN TO TOES WITH DISCOLORATION NOTED- REMOVED FROM CPAP AND PLACED ON 2-3 L O2 VIA NC FOR THE REST OF DAY WHICH HE HAS TOLERATED WELL WITH SPO2 88-95% CBG'S COVERED WITH SSC INSULIN PER MD ORDER- PT HAS BEEN COMPLIANT AND APPROPRIATE
[2021-04-06] MEDS: ATORVASTATIN 20 MG TABLET 80 MG PO (21:18)
[2021-04-06] MEDS: SERTRALINE 50 MG TABLET 200 MG PO (21:19)
[2021-04-06] MEDS: INSULIN GLARGINE 100 UNIT/ML 3ML PEN 20 UNIT SUBCUT (21:33)
[2021-04-07] VITALS (17 sets, daily range): BP systolic 130–163; BP diastolic 56–74; PULSE 50–79; RESP 14–21; TEMP 35.9–37.2; O2SAT 93–100
[2021-04-07 05:22] LABS: Add Manual Diff / Slide Review NO; Basophils Absolute Auto 200 /uL (0-100); Basophils Percent Auto 2.5 % (0-2); Eosinophils Absolute Auto 100 /uL (0-450); Eosinophils Percent Auto 1.9 % (2-4); Hematocrit 36.5 % (41-53); Hemoglobin 11.1 g/dL (13.5-17.5); Lymphocytes Absolute Auto 700 /uL (1100-4500); Lymphocytes Percent Auto 10.1 % (25-40); Mean Corpuscular HGB Conc 30.4 % (30-36); Mean Corpuscular Hemoglobin 24.7 PG (26-34); Mean Corpuscular Volume 81.2 fL (80-100); Monocytes Absolute Auto 400 /uL (0-900); Monocytes Percent Auto 5.5 % (3-14); Neutrophils Absolute Auto 5300 /uL (1500-7000); Platelet Count 239 X10^3/uL (150-400); Red Blood Cell Count 4.49 X10^6/uL (4.5-5.9); Red Cell Distribution Width 21.4 % (11.6-14.8); White Blood Cell Count 6.6 X10^3/uL (4.5-11.0)
[2021-04-07 05:37] LABS: Alanine Aminotransferase 11 IU/L (<50); Albumin 3.4 g/dL (3.5-5.0); Albumin Globulin Ratio 1.1 (1.0-2.8); Alkaline Phosphatase 86 U/L (38-126); Aspartate Aminotransferase 16 IU/L (17-59); BUN Creatinine Ratio 36.4 (6-22); Bilirubin Total 0.4 mg/dL (0.2-1.3); Blood Urea Nitrogen 36 mg/dL (9-20); Calcium 9.1 mg/dL (8.4-10.2); Chloride 93 mmol/L (98-107); Estimated Glomerular Filt Rate > 60.0 mL/min (>60); Globulin 3.2 g/dL (1.7-4.1); Glucose 179 mg/dL (80-110); HEMOLYSIS < 15 (0-50); Magnesium 2.4 mg/dL (1.6-2.3); Potassium 4.7 mmol/L (3.4-5.1); Sodium 140 mmol/L (137-145); Total Protein 6.6 g/dL (6.3-8.2)
[2021-04-07 05:45] LABS: Carbon Dioxide 46 mmol/L (22-32); NT-proBNP (BNP-Adult 18+) 1000 pg/mL (<125)
[2021-04-07 05:50] LABS: Anisocytosis 2+; Basophilic Stippling 1+; Hypochromasia 1+; Polychromasia 1+
[2021-04-07] MEDS: ALBUTEROL/IPRATROPIUM 3 ML AMPUL INH ×4 (07:50→17:36)
[2021-04-07] MEDS: INSULIN LISPRO 100 UNIT/ML 3ML VIAL SUBCUT ×4 (08:58→20:32)
[2021-04-07] MEDS: LOSARTAN 50 MG TABLET 100 MG PO (09:04)
[2021-04-07] MEDS: DOXYCYCLINE HYCLATE 100 MG TABLET PO ×2 (09:04→20:30)
[2021-04-07] MEDS: ENOXAPARIN 40 MG/0.4 ML SYRINGE SUBCUT ×2 (09:05→20:31)
[2021-04-07] MEDS: predniSONE 20 MG TABLET 40 MG PO (09:06)
[2021-04-07] MEDS: ASPIRIN EC 81 MG TABLET PO (09:06)
[2021-04-07] MEDS: DOCUSATE 100 MG CAPSULE PO ×2 (09:06→20:30)
[2021-04-07] MEDS: TAMSULOSIN 0.4 MG CAPSULE 0.8 MG PO (09:06)
--- NOTE | 2021-04-07 10:49 | PM.PN.1 ---
Subjective Subjective Date Patient Seen: 04/07/21 Interval history: Patient is a 70-year-old male with obesity hypoventilation, obstructive sleep apnea, COPD, morbid obesity admitted to the hospital with hypercapnic the patient was placed on BiPAP and has had significant improvement in his breathing and CO2 retention. His metabolic encephalopathy has resolved. He is tolerating 2 L during the day and BiPAP at night. Patient is agreeable to correction if this can be provided. Overall he is making significant improved Exam Vital Signs (past 8 hours): - 04/07/21 04:30 04/07/21 05:00 04/07/21 08:00 Temperature 96.9 F L 96.6 F L Pulse Rate 58 L 50 L Respiratory Rate 19 19 Blood Pressure 163/73 H 157/74 H Pulse Oximetry 93 96 99 04/07/21 09:00 04/07/21 09:04 Temperature Pulse Rate Respiratory Rate Blood Pressure 157/74 H Pulse Oximetry 94 Fraction of Inspired Oxygen 35 Oxygen Delivery Method Room Air Oxygen Flow Rate 3 Narrative Exam Narrative: Pleasant elderly male lying in bed Resp Other: Lungs decreased breath sounds bilaterally Cardio Other: Cardiac exam: Regular rate and rhythm normal S1-S2 with a 3/6 systolic ejection GI Other: Abdomen: Soft nontender nondistended Other: Morris catheter in place Extrem Other: Extremity 3+ edema bilaterally Objective Labs Result Diagrams: 04/07/21 04:42 04/07/21 04:42 Labs: Laboratory Results - last 24 hr 04/06/21 04/07/21 04/07/21 Unknown 04:42 04:42 WBC 6.6 RBC 4.49 L Hgb 11.1 L Hct 36.5 L MCV 81.2 MCH 24.7 L MCHC 30.4 RDW 21.4 H Plt Count 239 Neut % (Auto) 80.0 H Lymph % (Auto) 10.1 L [place] % (Auto) 5.5 Eos % (Auto) 1.9 L Baso % (Auto) 2.5 H Neut # (Auto) 5300 Lymph # (Auto) 700 L [place] # (Auto) 400 Eos # (Auto) 100 Baso # (Auto) 200 H RBC Morphology See below Polychromasia 1+ H Hypochromasia 1+ H Basophilic Stippling 1+ H Anisocytosis 2+ H Sodium 140 Potassium 4.7 Chloride 93 L Carbon Dioxide 46 H* BUN 36 H Creatinine 0.99 Estimated GFR > 60.0 BUN/Creatinine Ratio 36.4 H Glucose 179 H Calcium 9.1 Magnesium 2.4 H Total Bilirubin 0.4 AST 16 L ALT 11 Alkaline Phosphatase 86 NT-Pro-B Natriuret Pep 1000 H Total Protein 6.6 Albumin 3.4 L Globulin 3.2 Albumin/Globulin Ratio 1.1 Procalcitonin 0.08 PFSH Social History household members: none Smoking Status: Never smoker alcohol intake: former Assessment & Plan Assessment & Plan narrative: Impression 1. Acute on chronic hypercapnic respiratory failure -suspect related to noncompliance with nighttime BiPAP -most likely represents underlying obesity hypoventilation -doubt COPD a significant contributor -will taper steroid -continue nighttime BiPAP -continue daytime oxygen -PT OT evaluation -discharge planning evaluation for possible sniff at discharge 2. Pulmonary edema -echo reveals EF of 60 65% -patient was lower extremity edema -he diuresed 1 L, had an increase in creatinine, now returned to normal -resume home oral Lasix 3. Metabolic encephalopathy, present on admission, now resolved -likely related to underlying CO2 narcosis 4. Type 2 diabetes -taper steroids -continue sliding scale insulin 5. Morbid obesity -dietary consultation 6. Venous stasis insufficiency -Lasix as above -elevate legs 7. Self neglect -discharge planning consultation Home when placement can be arranged Time Spent With Patient Critical Care time: I spent a total of [] minutes of critical care time on this patient's care today; this time is exclusive of procedural time. Quality VTE Deep Vein Thrombosis/Pulmonary Embolism Present on Admission: No
[2021-04-07 11:29] LABS: Hemoglobin A1C% w Est Avg Glu 5.6 % (4.0-6.0)
[2021-04-07] MEDS: FUROSEMIDE 40 MG TABLET PO (11:54)
[2021-04-07] MEDS: NYSTATIN CREAM 30 GM 1 APPLIC TOP ×3 (11:55→20:34)
--- NOTE | 2021-04-07 13:40 | PT.IIE ---
Current Diagnoses Morbid (severe) obesity due to excess calories (04/04/21) Acute and chronic respiratory failure with hypercapnia (04/04/21) Edema, unspecified (04/04/21) Physical Therapy Inpatient Evaluation/Re-Eval M1 PT/OT-IP Prior Functional Status Start: 04/07/21 14:16 Freq: NEEDED Status: Active Protocol: Document 04/07/21 13:40 AB (Rec: 04/07/21 14:29 AB [id number]) Medical Review Prior Functional Status Medical History Reviewed Yes Communication able to make needs known Mobility and Gait pt stated that he is modified independent with all mobilities and ambulation using a 4WW but does not really walk outdoors Social History Household Members none Living Arrangements House Number of Floors (Floors) One Floor Number of Stairs To Enter/Railing? 3 steps R rail from the front 4 steps L rail from the back Home Environment Walk in Shower,Tub/Shower Home Equipment Four Wheel Walker,Raised Toilet Seat w/Armrests,Hand Held Shower,Grab Bars In Shower Additional Social History Comment pt has a tub shower with reed man chair with back and grab bars but also has a walk in shower but without a shower chair pt stated that he will probably go to an [facility] in [place]. pt stated that his son lives ~ 2 miles away from him and he can call him if ne needed assistance uses home O2 @ 2L/min M2 PT-IP Current Condition Start: 04/07/21 14:16 Freq: NEEDED Status: Active Protocol: Document 04/07/21 13:40 AB (Rec: 04/07/21 14:29 AB [email or web address]) Physical Therapy Current Condition Current Condition Evaluation Date 04/07/21 Treatment Diagnosis COPD exacerbation; difficulty in walking Onset Date 05/04/21 M3 PT-IP Subjective Start: 04/07/21 14:16 Freq: NEEDED Status: Active Protocol: Document 04/07/21 13:40 AB (Rec: 04/07/21 14:29 AB [id number]) Subjective Physical Therapy Visit Type Type Initial Evaluation Visit Start Time 13:40 Visit Stop Time 14:10 Total Visit Minutes 30 Number of FORMULA WEIGHER Visits 0 Physical Therapy Visit Comments Patient Comments pt is agreeable to do PT M4 PT-IP Mobility and Gait Start: 04/07/21 14:16 Freq: NEEDED Status: Active Protocol: Document 04/07/21 13:40 AB (Rec: 04/07/21 14:29 AB [id number]) PT-Bed Mobility Assessment Supine to Sit Supine to Sit Maximum Assistance Sit to Supine Sit to Supine Maximum Assistance,Bedrails PT-Transfer Assessment Sit to and From Stand Sit to and from Stand Contact Guard Assistance,1 Person Assistance,Use of Upper Extremities Equipment Transfer Assistive Device Gait Belt,4 Wheeled Walker Orthotic/Prosthetic Devices or Brace: No Comments Mobility Comments pt with nurse and NAC and was just up to use the toilet. pt in bed now but agreed to do PT. pt used overhead lift to assist with bed mobility. required max A and max cues. able to sit on EOB SBA. O2 sat decreased with mobility to ~ 81% with O2 on. rested and O2 sat increased to 93% with cues for PLB. pt completed sit to stand CGA and ambulated in room ~ 40 ft using 4WW. refused further ambulation and requested to go back to bed. completed sit to supine max A for LE elevation to bed and pt used bed rail to assist. positioned pt in bed. call light and table placed within reach. Gait Assessment Gait Gait Assistance Required: Standby Assistance,Contact Guard Assist Distance (Feet) 40 Able to Maintain Weight Bearing Status Yes During Gait Assistive Devices Assistive Device Gait Belt,4 Wheeled Walker Orthotic/Prosthetic Devices or Brace: No Gait Deviations General Gait Pattern Antalgic,Decreased Stride Length,Decreased Feet Clearance,Wide Based Gait Factors Limiting Gait Function Factors Limiting Gait Function Decreased Activity Tolerance, Decreased Strength,Limited Range of Motion,Pain,Poor Balance,Poor Safety Awareness, Respiratory Distress PT-Balance Assessment Sitting Balance and Reactions Static Sitting Balance Ability Good Dynamic Sitting Balance Ability Good Standing Balance and Reactions Static Standing Balance Ability Fair Dynamic Standing Balance Ability Fair Device Used 4WW M5 PT-IP Objective Assessments Start: 04/07/21 14:16 Freq: NEEDED Status: Active Protocol: Document 04/07/21 13:40 AB (Rec: 04/07/21 14:29 AB [id number]) Orientation Orientation/Cognition Level of Alertness Alert Orientation Name,Place,Situation Safety Awareness Decreased Safety Awareness Memory Description No Deficits Noted Strength Lower Extremity Strength Assessment Within Functional Limits Coordination Assessment Gross Coordination Gross Coordination WNL Muscle Tone Muscle Tone WNL Yes M6 PT-IP Treatment Start: 04/07/21 14:16 Freq: NEEDED Status: Active Protocol: Document 04/07/21 13:40 AB (Rec: 04/07/21 14:29 AB [id number]) Physical Therapy Treatment Education Education Provided Safety M7 PT-IP Assessment and Plan Start: 04/07/21 14:16 Freq: NEEDED Status: Active Protocol: Document 04/07/21 13:40 AB (Rec: 04/07/21 14:29 AB [id number]) PT Summary Assessment and Plan Potential Rehabilitation Potential Good Status of Condition at Evaluation Evolving Summary Impairments Pain,ROM,Strength,Balance, Coordination,Bed Mobility, Transfers,Gait,Activity Tolerance Assessment Summary pt requiring max A with bed mobility, SBA to CGA with ambulation using 4WW but with decrease activity tolerance with decrease O2 sat to ~ 81% after bed mobility. pt stated that his bed set up at home is better and lower which makes it easier for him to manage. will continue to do PT to improve overall strength and activity tolerance. pt will benefit from HHPT. Goals Bed Mobility Goal Independent Transfer Goal Independent,Four Wheeled Walker Gait Goal Independent,Four Wheel Walker Gait Distance 200 Other Goals up/down 3 steps R rail SBA Days to Meet Goals 10 Frequency of Treatment Frequency Of Treatment Once a Day Treatment Plan Physical Therapy Treatment Plan Bed Mobility Training,Transfer Training,Gait Training, Therapeutic Exercise,Balance Retraining,Discharge Planning, Hot or Cold Pack,Neuromuscular Re-ed,Coordination Retraining Precautions Other Precautions O2 sat Recommendations To Nursing Amount of Assist Needed 1 Person Assist Discharge Recommendations PT Discharge Recommendations Home with Assistance,Home Health Transportation Needs at Discharge Private Vehicle
--- NOTE | 2021-04-07 15:56 | OT.IPNOTE ---
Attempted to see pt for OT eval and pt states just got back into bed and wanting to wait until tomorrow. Able to get prior history from pt, no charge. Therefore to do OT eval tomorrrow.
--- NOTE | 2021-04-07 17:40 | PC.NURSE ---
Per patient report, he states that he got accepted at an assisted living facility in [place]. Pt up today in chair and worked with PT/OT. Denies pain. Maintaining sats on 3 liters per NC 98-99%. Per Dr Espino, needs to continue on continuous pulse ox. Insulin coverage given before meals.
[2021-04-07] MEDS: ATORVASTATIN 20 MG TABLET 80 MG PO (20:30)
[2021-04-07] MEDS: SERTRALINE 50 MG TABLET 200 MG PO (20:30)
[2021-04-07] MEDS: INSULIN GLARGINE 100 UNIT/ML 3ML PEN 20 UNIT SUBCUT (20:31)
[2021-04-07] MEDS: SODIUM CHLORIDE 0.9% FLUSH 10 ML IV (20:35)
[2021-04-08] VITALS (19 sets, daily range): BP systolic 128–168; BP diastolic 57–84; PULSE 62–78; RESP 14–24; TEMP 36.1–37.1; O2SAT 93–100
--- NOTE | 2021-04-08 01:22 | PC.NURSE ---
Patient is alert and oriented. Breath sounds diminished throughout. On oxygen at 3L/min per NC with sat of 93%; using CPAP w/O2 bled in for sleep. Is on continuous oximetry. HRR w/murmur. Telemetry reading was SR w/1st degree AVB. Denied nausea. BT present and abdomen is soft but large/round. Voiding without dysuria but has urgency and frequency related to administration of diuretic. Is able to move himself slightly in bed but due to obesity has minimal room to move. Is getting out of bed with walker and 1 assist. Edema present in bilateral LE and scrotum. Wearing bilateral SCD's at start of shift but after getting up to bathroom earlier declined to have them put back on; reminded to ankle wave. Abdominal folds/groins reddened but without breakdown and Nystatin cream was applied at hs. Denied pain. Fall risk score is high and bed alarm is activated.
[2021-04-08 05:41] LABS: Add Manual Diff / Slide Review NO; Basophils Absolute Auto 0 /uL (0-100); Basophils Percent Auto 0.6 % (0-2); Eosinophils Absolute Auto 200 /uL (0-450); Eosinophils Percent Auto 2.5 % (2-4); Hematocrit 34.7 % (41-53); Hemoglobin 10.8 g/dL (13.5-17.5); Lymphocytes Absolute Auto 1300 /uL (1100-4500); Lymphocytes Percent Auto 20.6 % (25-40); Mean Corpuscular Hemoglobin 25.1 PG (26-34); Monocytes Absolute Auto 400 /uL (0-900); Monocytes Percent Auto 6.5 % (3-14); Neutrophils Absolute Auto 4400 /uL (1500-7000); Neutrophils Percent Auto 69.8 % (50-75); Platelet Count 216 X10^3/uL (150-400); Red Blood Cell Count 4.28 X10^6/uL (4.5-5.9); Red Cell Distribution Width 21.4 % (11.6-14.8); White Blood Cell Count 6.2 X10^3/uL (4.5-11.0)
[2021-04-08 05:49] LABS: BUN Creatinine Ratio 36.4 (6-22); Blood Urea Nitrogen 32 mg/dL (9-20); Chloride 92 mmol/L (98-107); Estimated Glomerular Filt Rate > 60.0 mL/min (>60); Glucose 228 mg/dL (80-110); HEMOLYSIS < 15 (0-50); Potassium 4.5 mmol/L (3.4-5.1); Sodium 140 mmol/L (137-145)
[2021-04-08 05:57] LABS: Carbon Dioxide 49 mmol/L (22-32)
[2021-04-08 06:15] LABS: Anisocytosis 2+
[2021-04-08] MEDS: ALBUTEROL/IPRATROPIUM 3 ML AMPUL INH ×4 (07:02→19:49)
--- NOTE | 2021-04-08 08:22 | PC.NURSE ---
Patient was yelling NATHALIE ZELAYA instead of using the call light. I went in and he was demanding his breakfast, I told him that it had not arrived yet and that it was running late. HE stated I don't care, Isabel been waiting an hour and a half ( it was 8:20), I started to say something and he told me to SHUT UP, I dont care. I stated that he couldn't talk to me like that and I walked out of the room. I told the RN of the situation after it occurred.
[2021-04-08] MEDS: INSULIN LISPRO 100 UNIT/ML 3ML VIAL SUBCUT ×4 (08:28→20:53)
[2021-04-08] MEDS: ENOXAPARIN 40 MG/0.4 ML SYRINGE SUBCUT ×2 (08:57→20:51)
[2021-04-08] MEDS: DOCUSATE 100 MG CAPSULE PO ×2 (08:58→20:51)
[2021-04-08] MEDS: LOSARTAN 50 MG TABLET 100 MG PO (08:58)
[2021-04-08] MEDS: FUROSEMIDE 40 MG TABLET PO (08:58)
[2021-04-08] MEDS: ASPIRIN EC 81 MG TABLET PO (08:58)
[2021-04-08] MEDS: DOXYCYCLINE HYCLATE 100 MG TABLET PO ×2 (08:58→20:51)
[2021-04-08] MEDS: TAMSULOSIN 0.4 MG CAPSULE 0.8 MG PO (08:59)
[2021-04-08] MEDS: SODIUM CHLORIDE 0.9% FLUSH 10 ML IV ×2 (09:00→20:55)
[2021-04-08] MEDS: predniSONE 20 MG TABLET PO (09:00)
[2021-04-08] MEDS: NYSTATIN CREAM 30 GM 1 APPLIC TOP ×3 (09:01→20:54)
--- NOTE | 2021-04-08 09:44 | OT.IP.EVAL ---
Current Diagnoses Morbid (severe) obesity due to excess calories (04/04/21) Acute and chronic respiratory failure with hypercapnia (04/04/21) Edema, unspecified (04/04/21) Occupational Therapy Inpatient Evaluation/Re-Eval M1 PT/OT-IP Prior Functional Status Start: 04/07/21 14:16 Freq: NEEDED Status: Active Protocol: Document 04/08/21 09:51 [facility] (Rec: 04/08/21 10:04 [facility] [id number]) Medical Review Prior Functional Status Medical History Reviewed Yes Communication able to make needs known Mobility and Gait pt stated that he is modified independent with all mobilities and ambulation using a 4WW but does not really walk outdoors Activities of Daily Living and IADL's Pt states able to do all his ADl,IADl needs with increased time and use of LB equipment. Social History Household Members none Living Arrangements House Number of Floors (Floors) One Floor Number of Stairs To Enter/Railing? 3 steps R rail from the front 4 steps L rail from the back Home Environment Walk in Shower,Tub/Shower Home Equipment Four Wheel Walker,Raised Toilet Seat w/Armrests,Hand Held Shower,Grab Bars In Shower Additional Social History Comment pt has a tub shower with shower chair with back and grab bars but also has a walk in shower but without a shower chair pt stated that he will probably go to an [facility] in [place]. pt stated that his son lives ~ 2 miles away from him and he can call him if ne needed assistance uses home O2 @ 2L/min M2 OT-IP Current Condition Start: 04/08/21 09:46 Freq: Status: Active Protocol: Document 04/08/21 09:51 [facility] (Rec: 04/08/21 10:04 [facility] [id number]) Occupational Therapy Current Condition Current Condition Evaluation Date 04/08/21 Treatment Diagnosis COPD exacerbation Diagnosis Onset Date 04/04/21 M3 OT- IP Subjective and Pain Start: 04/08/21 09:46 Freq: Status: Active Protocol: Document 04/08/21 09:51 [facility] (Rec: 04/08/21 10:04 [facility] [id number]) OT- Subjective Occupational Therapy Visit Type Type Initial Evaluation Visit Start Time 09:19 Visit Stop Time 09:44 Total Visit Minutes 25 Occupational Therapy Visit Comments Patient Comments Pt needing a bit of encouragement and then agreed to go up for OT eval. Patient/Caregiver Goals To go to [facility] in [place]. OT Pain Assessment Pain When Pain Assessed At Rest Pain Present Pain Present Denied Pain M4 OT- IP ADL's Start: 04/08/21 09:46 Freq: Status: Active Protocol: Document 04/08/21 09:51 [facility] (Rec: 04/08/21 10:04 [facility] [id number]) OT BCX-Cffi-Diltffq General Evaluation Self-Feeding Ability Independent OT ADL-Grooming General Evaluation Grooming Ability Standby Assistance Areas Needing Assistance Retrieving/Set-up of Grooming Items OT ADL-Oral Care General Eval Oral Care Ability Independent OT ADL-Dressing Comments OT Dressing Comments Not performed. OT ADL-Toileting Comments OT Toileting Comments Pt not having to go at this time. OT ADL-Bathing Comments OT Bathing Comments Pt states showered yesterday. M5 OT- IP IADL's Start: 04/08/21 09:46 Freq: Status: Active Protocol: Document 04/08/21 09:51 [facility] (Rec: 04/08/21 10:04 [facility] [id number]) OT-Instrumental Activities of Daily Living Home Safety Awareness Ability to Problem Solve Emergency Able to Problem Solve Situations Home Safety Comments Pt states does all his need at home, to continue to assess pt and also to do a formal cognitive assessment. M6 OT- IP Functional Cognition Start: 04/08/21 09:46 Freq: Status: Active Protocol: Document 04/08/21 09:51 [facility] (Rec: 04/08/21 10:04 [facility] [id number]) Cognitive Factors Limiting Selfcare Function Cognitive Ability Level of Alertness Alert Patient Orientation Name,Place,Situation Attention Span Ability Capable of Focused Attention, Capable of Sustained Attention Ability to Follow Commands Able to Follow One Step Commands Memory Description Short Term Impaired Cognitive Comments Cognitive Assessment Comments Pt at times repeating himself and the same story. Pt able to answer all home safety situations accurately. Pt would benefit from a formal cognitive eval. OT- Vision and Hearing OT- Hearing Assessment OT- Hearing Assessment Use of Hearing Aids OT- Vision Assessment Visual Acuity Glasses For Reading M7 OT- IP Mobility and Balance Start: 04/08/21 09:46 Freq: Status: Active Protocol: Document 04/08/21 09:51 [facility] (Rec: 04/08/21 10:04 [facility] [id number]) OT- Bed Mobility Assessment Rolling Type of Rolling Roll to Left Level of Assistance Standby Assistance,Head of Bed Elevated,Bedrails Supine to Sit Supine to Sit Assist Standby Assistance Sit to Supine Sit to Supine Assist Moderate Assistance Scooting Scooting to Edge of Bed Contact Guard Assistance OT-Transfer Assessment Sit to and From Stand Sit to and from Stand Contact Guard Assistance Transfers Transfer Ability Standby Assistance Technique Transfer Destination Bed Transfer Technique Stand Step Pivot Devices Transfer Assistive Devices Front Wheeled Walker Comments Mobility Comments Pt heavy use of momentum and bed rail to get to the edge of the bed. MODA x1 to help get his legs back into bed. CGA to stand and SBA with 4ww. Pt 's o2 on 3L and drops to 81% and after one minute increases to 90%. OT- Balance Assessment Sitting Balance and Reactions Static Sitting Balance Ability Good Dynamic Sitting Balance Ability Fair Standing Balance and Reactions Static Standing Balance Ability Fair M8 OT- IP Objective Assessments Start: 04/08/21 09:46 Freq: Status: Active Protocol: Document 04/08/21 09:51 [facility] (Rec: 04/08/21 10:04 [facility] [id number]) OT Gross Range of Motion Upper Extremity Range of Motion Assessment Right Impaired OT Strength Upper Extremity Strength Assessment Right Impaired OT-Muscle Tone Assessment Muscle Tone WNL Yes M9 OT- IP Assessment and Plan Start: 04/08/21 09:46 Freq: Status: Active Protocol: Document 04/08/21 09:51 [facility] (Rec: 04/08/21 10:04 [facility] [id number]) OT Summary Assessment and Plan Potential Rehabilitation Potential Good Analytic Complexity at Evaluation Moderate Summary OT Impairments Range of Motion,Strength, Balance,Functional Cognition, Functional Mobility,Dressing, Toileting,Bathing,Toilet Transfers,Shower Transfers, Activity Tolerance Progress Towards Goals Progressing Toward Goals Assessment Summary Pt MOD complexity and here due to COPD exacerbation and now needing assist for mobility and ADl needs. Pt planning on going to [facility] in [place]. Pt would benefit from home health versus if unable to go to [facility], SNF to help maximize his mobility , ADL , and activity tolerance needs. Goals Grooming Goal Independent Dressing Goal Minimal Assistance Toileting Goal Independent Bathing Goal Independent Toilet Transfer Goal Independent Shower Transfer Goal Independent Days to Meet Goals 10 Frequency of Treatment Frequency Of Treatment Once a Day Treatment Plan OT Treatment Plan ADL Training,Functional Cognition Training,Functional Mobility,Patient/Family Education,Discharge Planning Other Treatment Recommendations and Next SLUMS Treatment Focus Discharge Recommendations OT Discharge Recommendations Home Health,SNF Rehab,LTAC Transportation Needs at Discharge Private Vehicle,Wheelchair/ Cabulance
--- NOTE | 2021-04-08 11:01 | CM.DPNOTE ---
Addendum entered by Marie hZu 04/08/21 12:16: Also faxed referral to [facility] and received fax conf. Marie Zhu CM Assist. Original Note: Emailed snf referral packet to [facility] per Ada and received confirm. Marie hZu CM Asst.
--- NOTE | 2021-04-08 11:43 | PT-IP ANOTE ---
Attempted to see pt at 10:07 and 11:43, pt refused both times but said he would try to participate after lunch. Will check in PM.
--- NOTE | 2021-04-08 11:48 | PM.PN.1 ---
Subjective Subjective Date Patient Seen: 04/08/21 Interval history: 70 y/o male admitted with acute hypoxic respiratory failure secondary to obesity hypoventilation/ obstructive sleep apnea. He tolerated bipap last night. He continues to oxygenate well without Co2 narcosis. He complains of groin swelling. Patient reports he is bored and would like to go home. Exam Vital Signs (past 8 hours): - 04/08/21 04:00 04/08/21 07:00 04/08/21 07:50 Temperature 97.0 F L Pulse Rate 71 63 Respiratory Rate 17 24 Blood Pressure 141/67 H Pulse Oximetry 96 95 95 04/08/21 08:00 04/08/21 08:58 04/08/21 11:27 Temperature 98.8 F Pulse Rate 66 75 67 Respiratory Rate 20 20 Blood Pressure 165/74 H 128/84 Pulse Oximetry 93 97 Fraction of Inspired Oxygen 35 Oxygen Delivery Method Nasal Cannula Oxygen Flow Rate 3 Narrative Exam Narrative: Morbidly obese male sitting in a chair on oxygen Resp Other: decreased breath sounds with diffuse crackles bilaterally Cardio Other: RRR nl Sl S2 3/6 EUGENIA GI Other: ABd: obese/ soft non tender non distended Other: scrotal edema, penile edema, intertriginous alexandre noted Psych Other: 3+ pitting edema bilaterally Objective Labs Result Diagrams: 04/08/21 05:15 04/08/21 05:15 Labs: Laboratory Results - last 24 hr 04/08/21 04/08/21 05:15 05:15 WBC 6.2 RBC 4.28 L Hgb 10.8 L Hct 34.7 L MCV 81.0 MCH 25.1 L MCHC 31.0 RDW 21.4 H Plt Count 216 Neut % (Auto) 69.8 Lymph % (Auto) 20.6 L [place] % (Auto) 6.5 Eos % (Auto) 2.5 Baso % (Auto) 0.6 Neut # (Auto) 4400 Lymph # (Auto) 1300 [place] # (Auto) 400 Eos # (Auto) 200 Baso # (Auto) 0 RBC Morphology See below Anisocytosis 2+ H Sodium 140 Potassium 4.5 Chloride 92 L Carbon Dioxide 49 H* BUN 32 H Creatinine 0.88 Estimated GFR > 60.0 BUN/Creatinine Ratio 36.4 H Glucose 228 H Calcium 9.0 PFSH Social History household members: none Smoking Status: Never smoker alcohol intake: former Assessment & Plan Assessment & Plan narrative: cute on chronic hypercapnic respiratory failure -suspect related to noncompliance with nighttime BiPAP -most likely represents underlying obesity hypoventilation -doubt COPD a significant contributor -will taper steroid -continue nighttime BiPAP -continue daytime oxygen - Evaluation of Trilogy -Non invasive Ventilator ordered for chronic Hypercapneic respiratory failure -Patient has had multiple hospitalizations due to hypercapnic respiratory failure, goal is to decrease readmissions due to respiratory failure -Patient has tried and failed bipap multiple times. He was on BIpap at home and was readmitted 7 days after last hospitalization -PT OT evaluation -discharge planning evaluation for possible sniff at discharge 2. Pulmonary edema -echo reveals EF of 60 65% -patient was lower extremity edema -he diuresed 1 L, had an increase in creatinine, now returned to normal -resume home oral Lasix 3. Metabolic encephalopathy, present on admission, now resolved -likely related to underlying CO2 narcosis 4. Type 2 diabetes -taper steroids -continue sliding scale insulin 5. Morbid obesity -dietary consultation 6. Venous stasis insufficiency -Lasix as above -elevate legs 7. Self neglect -discharge planning consultation Home when placement can be arranged 8. scrotal edema/ intertriginous alexandre -continue nystatin cream -elevate scrotum Time Spent With Patient Critical Care time: I spent a total of [] minutes of critical care time on this patient's care today; this time is exclusive of procedural time. Quality VTE Deep Vein Thrombosis/Pulmonary Embolism Present on Admission: No
--- NOTE | 2021-04-08 11:53 | CM.DPNOTE ---
Addendum entered by LOVE Samaniego 04/08/21 11:55: ADD: [facility] does not have beds until next week BENEDICT Original Note: DCP Note Dual planning[facility] [place]. Patient has MCR A Yesterday, spoke w/Anayeli, [facility] in [place] P# [phone] F# [phone], she requested clinical and explained she has been working closely w/patient and his son to secure [facility] bed when patient was appropriate for this level of care. Apparently, patient has a spot at [facility] in [place] Patient/family agreeable to clinical faxed to [facility]. Patient also agreeable to SNF stay, however, requests information on any expected out of pocket cost; patient states he cannot pay privately. Referrals have now been faxed to [facility], referral discussed at [facility], [facility] and [facility], awaiting review from [facility] and SNF options JW
[2021-04-08] MEDS: INSULIN GLARGINE 100 UNIT/ML 3ML PEN SUBCUT (12:56)
--- NOTE | 2021-04-08 13:49 | PT-IP ANOTE ---
Attempted to see pt 13:49, pt refused PT for third time today stating he does not feel well but will try again tomorrow.
--- NOTE | 2021-04-08 19:38 | PC.NURSE ---
Pt transferred to room 205 at 1530. 3L NC, CPOX on. Denies pain. 1 PA w/fww to bathroom. Chair alarm applied. Trans to bed after dinner. Bed alarm on. Calling appropriately for needs. Son at bedside.
[2021-04-08] MEDS: ATORVASTATIN 20 MG TABLET 80 MG PO (20:51)
[2021-04-08] MEDS: SERTRALINE 50 MG TABLET 200 MG PO (20:51)
[2021-04-08] MEDS: INSULIN GLARGINE 100 UNIT/ML 3ML PEN 30 UNIT SUBCUT (20:53)
[2021-04-09] VITALS (15 sets, daily range): BP systolic 136–163; BP diastolic 45–65; PULSE 61–70; RESP 16–20; TEMP 36.3–37.3; O2SAT 95–100
[2021-04-09 08:11] LABS: BUN Creatinine Ratio 36.8 (6-22); Blood Urea Nitrogen 28 mg/dL (9-20); Calcium 8.7 mg/dL (8.4-10.2); Chloride 90 mmol/L (98-107); Estimated Glomerular Filt Rate > 60.0 mL/min (>60); Glucose 258 mg/dL (80-110); HEMOLYSIS < 15 (0-50); Potassium 4.8 mmol/L (3.4-5.1); Sodium 139 mmol/L (137-145)
[2021-04-09 08:24] LABS: Carbon Dioxide 48 mmol/L (22-32)
[2021-04-09] MEDS: ENOXAPARIN 40 MG/0.4 ML SYRINGE SUBCUT ×2 (08:36→21:19)
[2021-04-09] MEDS: ASPIRIN EC 81 MG TABLET PO (08:37)
[2021-04-09] MEDS: LOSARTAN 50 MG TABLET 100 MG PO (08:37)
[2021-04-09] MEDS: SODIUM CHLORIDE 0.9% FLUSH 10 ML IV ×2 (08:37→21:21)
[2021-04-09] MEDS: DOCUSATE 100 MG CAPSULE PO ×2 (08:37→21:19)
[2021-04-09] MEDS: DOXYCYCLINE HYCLATE 100 MG TABLET PO ×2 (08:37→21:19)
[2021-04-09] MEDS: TAMSULOSIN 0.4 MG CAPSULE 0.8 MG PO (08:37)
[2021-04-09] MEDS: FUROSEMIDE 40 MG TABLET PO (08:37)
[2021-04-09] MEDS: predniSONE 20 MG TABLET PO (08:37)
[2021-04-09] MEDS: INSULIN GLARGINE 100 UNIT/ML 3ML PEN 30 UNIT SUBCUT ×2 (08:38→21:20)
[2021-04-09] MEDS: INSULIN LISPRO 100 UNIT/ML 3ML VIAL SUBCUT ×4 (08:39→21:20)
[2021-04-09] MEDS: NYSTATIN POWDER 15GM 1 APPLIC TOP (08:41)
[2021-04-09] MEDS: ALBUTEROL/IPRATROPIUM 3 ML AMPUL INH ×4 (08:50→22:40)
--- NOTE | 2021-04-09 11:57 | PT.IPTN ---
Current Diagnoses Morbid (severe) obesity due to excess calories (04/04/21) Acute and chronic respiratory failure with hypercapnia (04/04/21) Edema, unspecified (04/04/21) Physical Therapy Treatment Note M2 PT-IP Current Condition Start: 04/07/21 14:16 Freq: NEEDED Status: Active Protocol: Document 04/07/21 13:40 AB (Rec: 04/07/21 14:29 AB [id number]) Physical Therapy Current Condition Current Condition Evaluation Date 04/07/21 Treatment Diagnosis COPD exacerbation; difficulty in walking Onset Date 05/04/21 M3 PT-IP Subjective Start: 04/07/21 14:16 Freq: NEEDED Status: Active Protocol: Document 04/09/21 11:34 KS (Rec: 04/09/21 14:09 KS [id number]) Subjective Physical Therapy Visit Type Type Treatment Note Visit Start Time 11:34 Visit Stop Time 11:57 Total Visit Minutes 23 Number of ENVIRONMENTAL STUDIES PROFESSOR Visits 1 Physical Therapy Visit Comments Patient Comments pt is agreeable to do PT M4 PT-IP Mobility and Gait Start: 04/07/21 14:16 Freq: NEEDED Status: Active Protocol: Document 04/09/21 11:34 KS (Rec: 04/09/21 14:09 KS [id number]) PT-Transfer Assessment Sit to and From Stand Sit to and from Stand Minimal Assistance,1 Person Assistance,Use of Upper Extremities Equipment Transfer Assistive Device Gait Belt,4 Wheeled Walker Orthotic/Prosthetic Devices or Brace: No Transfers Transfer Destination Chair Transfer Technique Pt ambulated w/ 4WW Transfer Ability Level of Assist Minimal Assistance,1 Person Assistance,Use of Upper Extremities Comments Mobility Comments Pt in chair upon arrival from therapy on 2LO2 and O2 91%, increased to 2.3 L for mobility. Pt sit<>stand Min A w/ 4WW, cues for brake application. He then ambulated ~60 ft around room w/ CGA. Pt demonstrated good use of FWW. Decreased stride, foot clearance, and WBOS when ambulating. Pt then used toilet SBA and ambulated additional 20 ft w/ 4WW CGA before sitting back down. O2 > 90% during ambulating. Mod A for stand<>sit on chair for slow descent, cues for hand placement. Pt left in chair on 2LO2 at 91%, denied SOB. Gait Assessment Gait Gait Assistance Required: Standby Assistance,Contact Guard Assist Distance (Feet) 80 Able to Maintain Weight Bearing Status Yes During Gait Assistive Devices Assistive Device Gait Belt,4 Wheeled Walker Orthotic/Prosthetic Devices or Brace: No Gait Deviations General Gait Pattern Antalgic,Decreased Stride Length,Decreased Feet Clearance,Wide Based Gait Factors Limiting Gait Function Factors Limiting Gait Function Decreased Activity Tolerance, Decreased Strength,Limited Range of Motion,Pain,Poor Balance,Poor Safety Awareness, Respiratory Distress Comments Gait Comments Please refer to mobility section for details. PT-Balance Assessment Sitting Balance and Reactions Static Sitting Balance Ability Good Dynamic Sitting Balance Ability Good Standing Balance and Reactions Static Standing Balance Ability Fair Dynamic Standing Balance Ability Fair Device Used 4WW M5 PT-IP Objective Assessments Start: 04/07/21 14:16 Freq: NEEDED Status: Active Protocol: Document 04/07/21 13:40 AB (Rec: 04/07/21 14:29 AB [id number]) Orientation Orientation/Cognition Level of Alertness Alert Orientation Name,Place,Situation Safety Awareness Decreased Safety Awareness Memory Description No Deficits Noted Strength Lower Extremity Strength Assessment Within Functional Limits Coordination Assessment Gross Coordination Gross Coordination WNL Muscle Tone Muscle Tone WNL Yes M6 PT-IP Treatment Start: 04/07/21 14:16 Freq: NEEDED Status: Active Protocol: Document 04/09/21 11:34 KS (Rec: 04/09/21 14:09 KS [id number]) Physical Therapy Treatment Exercises Exercises Ankle Pumps,Gluteal Sets Education Education Provided Safety M7 PT-IP Assessment and Plan Start: 04/07/21 14:16 Freq: NEEDED Status: Active Protocol: Document 04/09/21 11:34 KS (Rec: 04/09/21 14:09 KS [id number]) PT Summary Assessment and Plan Potential Rehabilitation Potential Good Status of Condition at Evaluation Evolving Summary Impairments Pain,ROM,Strength,Balance, Coordination,Bed Mobility, Transfers,Gait,Activity Tolerance Assessment Summary Pt Min A for transfers, SBA to [facility] for ambulation w/ 4WW. He required cues for 4WW use/ brake application but overall demonstrated good use. Able to tolerate ~80 ft ambulation prior to fatigue w/ 2.5LO2 >90 %. Required Mod A and cues for slow descent, poor eccentric control. Will continue to assess and progress mobility. Pt will at minimum require HHPT. Goals Bed Mobility Goal Independent Transfer Goal Independent,Four Wheeled Walker Gait Goal Independent,Four Wheel Walker Gait Distance 200 Other Goals up/down 3 steps R rail SBA Days to Meet Goals 10 Frequency of Treatment Frequency Of Treatment Once a Day Treatment Plan Physical Therapy Treatment Plan Bed Mobility Training,Transfer Training,Gait Training, Therapeutic Exercise,Balance Retraining,Discharge Planning, Hot or Cold Pack,Neuromuscular Re-ed,Coordination Retraining Precautions Other Precautions O2 sat Recommendations To Nursing Amount of Assist Needed 1 Person Assist Discharge Recommendations PT Discharge Recommendations Home with Assistance,Home Health Transportation Needs at Discharge Private Vehicle
--- NOTE | 2021-04-09 14:15 | OT.IP.TRT ---
Current Diagnoses Morbid (severe) obesity due to excess calories (04/04/21) Acute and chronic respiratory failure with hypercapnia (04/04/21) Edema, unspecified (04/04/21) Occupational Therapy Treatment Note M2 OT-IP Current Condition Start: 04/08/21 09:46 Freq: Status: Active Protocol: Document 04/08/21 09:51 [facility] (Rec: 04/08/21 10:04 [facility] [id number]) Occupational Therapy Current Condition Current Condition Evaluation Date 04/08/21 Treatment Diagnosis COPD exacerbation Diagnosis Onset Date 04/04/21 M3 OT- IP Subjective and Pain Start: 04/08/21 09:46 Freq: Status: Active Protocol: Document 04/09/21 14:06 [facility] (Rec: 04/09/21 15:15 [facility] [id number]) OT- Subjective Occupational Therapy Visit Type Type Treatment Note Visit Start Time 14:06 Visit Stop Time 14:15 Total Visit Minutes 9 Occupational Therapy Visit Comments Patient Comments Pt agreed to talk to OT regarding energy conservation needs. Patient/Caregiver Goals To go to SNF. OT Pain Assessment Pain When Pain Assessed At Rest Pain Present Pain Present Denied Pain M4 OT- IP ADL's Start: 04/08/21 09:46 Freq: Status: Active Protocol: Document 04/08/21 09:51 [facility] (Rec: 04/08/21 10:04 [facility] [id number]) OT [id number] General Evaluation Self-Feeding Ability Independent OT ADL-Grooming General Evaluation Grooming Ability Standby Assistance Areas Needing Assistance Retrieving/Set-up of Grooming Items OT ADL-Oral Care General Eval Oral Care Ability Independent OT ADL-Dressing Comments OT Dressing Comments Not performed. OT ADL-Toileting Comments OT Toileting Comments Pt not having to go at this time. OT ADL-Bathing Comments OT Bathing Comments Pt states showered yesterday. M5 OT- IP IADL's Start: 04/08/21 09:46 Freq: Status: Active Protocol: Document 04/08/21 09:51 [facility] (Rec: 04/08/21 10:04 [facility] [id number]) OT-Instrumental Activities of Daily Living Home Safety Awareness Ability to Problem Solve Emergency Able to Problem Solve Situations Home Safety Comments Pt states does all his need at home, to continue to assess pt and also to do a formal cognitive assessment. M8 OT- IP Objective Assessments Start: 04/08/21 09:46 Freq: Status: Active Protocol: Document 04/08/21 09:51 [facility] (Rec: 04/08/21 10:04 [facility] [id number]) OT Gross Range of Motion Upper Extremity Range of Motion Assessment Right Impaired OT Strength Upper Extremity Strength Assessment Right Impaired OT-Muscle Tone Assessment Muscle Tone WNL Yes M9 OT- IP Assessment and Plan Start: 04/08/21 09:46 Freq: Status: Active Protocol: Document 04/09/21 14:06 [facility] (Rec: 04/09/21 15:15 [facility] [id number]) OT Summary Assessment and Plan Potential Rehabilitation Potential Good Analytic Complexity at Evaluation Moderate Summary OT Impairments Range of Motion,Strength, Balance,Functional Cognition, Functional Mobility,Dressing, Toileting,Bathing,Toilet Transfers,Shower Transfers, Activity Tolerance Progress Towards Goals Progressing Toward Goals Assessment Summary Able to go over with pt energy conservation for his ADl and IADL needs. Pt states good understanding for all. Goals Grooming Goal Independent Dressing Goal Minimal Assistance Toileting Goal Independent Bathing Goal Independent Toilet Transfer Goal Independent Shower Transfer Goal Independent Days to Meet Goals 7 Frequency of Treatment Frequency Of Treatment Once a Day Treatment Plan OT Treatment Plan ADL Training,Functional Cognition Training,Functional Mobility,Patient/Family Education,Discharge Planning Discharge Recommendations OT Discharge Recommendations LTAC Transportation Needs at Discharge Private Vehicle,Wheelchair/ Cabulance
--- NOTE | 2021-04-09 17:01 | PM.PN.1 ---
Subjective Subjective Date Patient Seen: 04/09/21 Interval history: The patient is a 70-year-old male with a history of hypercapnic hypoxic respiratory failure secondary to obesity hypoventilation and obstructive sleep apnea. Patient also has a history of COPD. He reports he slept very well last evening. He has not been hypoxic. He denies any shortness of breath. Overall he continues to make excellent progress Exam Vital Signs (past 8 hours): - 04/09/21 12:26 04/09/21 12:31 04/09/21 15:31 Temperature 97.5 F L Pulse Rate 63 68 Respiratory Rate 18 18 Blood Pressure 154/51 H Pulse Oximetry 97 95 97 04/09/21 16:13 04/09/21 16:53 Temperature 99.1 F Pulse Rate 70 Respiratory Rate 16 Blood Pressure 136/45 L Pulse Oximetry 95 96 Fraction of Inspired Oxygen 35 Oxygen Delivery Method Nasal Cannula Oxygen Flow Rate 3 Narrative Exam Narrative: Obese male sitting in bed in no obvious distress Resp Other: Lungs decreased breath sounds with scattered fine crackles bilaterally Cardio Other: Cardiac exam: Regular rate and rhythm normal S1-S2 with a 3/6 systolic ejection murmur GI Other: Abdomen: Soft nontender nondistended Extrem Other: 3+ pitting edema bilaterally Objective ECG Impression: Normal left ventricular thickness, size, wall motion, and systolic function (EF 60-65%). 2) The right ventricle is mildly dilated. Right ventricular systolic function is mildly reduced. 3) Diastolic parameters suggest a pseudonormalization pattern, consistent with probable elevated filling pressures. 4) There is moderate aortic stenosis (valve area 1.1cm2, mean gradient 25mmHg, severity ratio 0.27). 5) The right ventricular systolic pressure is estimated to be at least 54 mmHg based on an estimated right atrial pressure of 15 mm Hg. 6) Hypertension present during the study (BP 162/74mmHg). 7) No prior Echo available for comparison. Labs Result Diagrams: 04/08/21 05:15 04/09/21 06:20 Labs: Laboratory Results - last 24 hr 04/09/21 06:20 Sodium 139 Potassium 4.8 Chloride 90 L Carbon Dioxide 48 H* BUN 28 H Creatinine 0.76 Estimated GFR > 60.0 BUN/Creatinine Ratio 36.8 H Glucose 258 H Calcium 8.7 PFSH Social History household members: none Smoking Status: Never smoker alcohol intake: former Assessment & Plan Assessment & Plan narrative: Acute on chronic hypercapnic respiratory failure -suspect related to noncompliance with nighttime BiPAP -most likely represents underlying obesity hypoventilation -doubt COPD a significant contributor -will taper steroid -continue nighttime BiPAP -continue daytime oxygen - [facility], awaiting call back from pulmonary for the [facility] to validate need for trilogy as an outpatient -Non invasive Ventilator ordered for chronic Hypercapneic respiratory failure -Patient has had multiple hospitalizations due to hypercapnic respiratory failure, goal is to decrease readmissions due to respiratory failure -Patient has tried and failed bipap multiple times. He was on BIpap at home and was readmitted 7 days after last hospitalization -PT OT evaluation -discharge planning evaluation for possible sniff at discharge 2. Pulmonary edema -echo reveals EF of 60 65% -patient was lower extremity edema -he diuresed 1 L, had an increase in creatinine, now returned to normal resume home oral Lasix 3. Metabolic encephalopathy, present on admission, now resolved -likely related to underlying CO2 narcosis 4. Type 2 diabetes -taper steroids -continue sliding scale insulin 5. Morbid obesity -dietary consultation 6. Venous stasis insufficiency -Lasix as above -elevate legs 7. Self neglect -discharge planning consultation Home when placement can be arranged, patient has been accepted into an assisted living facility for Monday. He will be transferred there by his son on Monday Will continue to work on the trilogy device and trial that here in the hospital 8. scrotal edema/ intertriginous alexandre -continue nystatin cream -elevate scrotum Time Spent With Patient Critical Care time: I spent a total of [] minutes of critical care time on this patient's care today; this time is exclusive of procedural time. Quality VTE Deep Vein Thrombosis/Pulmonary Embolism Present on Admission: No
--- NOTE | 2021-04-09 18:12 | RT ---
MD number [phone] [place] [phone] fax [phone] Called linnea and he was going to get a pulmonary doctor from the MD to call DR. Espino today.
[2021-04-09] MEDS: ATORVASTATIN 20 MG TABLET 80 MG PO (21:19)
[2021-04-09] MEDS: SERTRALINE 50 MG TABLET 200 MG PO (21:19)
[2021-04-09] MEDS: NYSTATIN CREAM 30 GM 1 APPLIC TOP (21:21)
[2021-04-10] VITALS (14 sets, daily range): BP systolic 160–178; BP diastolic 58–75; PULSE 60–88; RESP 14–20; TEMP 36.4–37.2; O2SAT 92–100
[2021-04-10] MEDS: ALBUTEROL/IPRATROPIUM 3 ML AMPUL INH ×3 (07:54→22:20)
[2021-04-10] MEDS: ENOXAPARIN 40 MG/0.4 ML SYRINGE SUBCUT ×2 (08:20→20:41)
[2021-04-10] MEDS: TAMSULOSIN 0.4 MG CAPSULE 0.8 MG PO (08:20)
[2021-04-10] MEDS: DOXYCYCLINE HYCLATE 100 MG TABLET PO ×2 (08:20→20:41)
[2021-04-10] MEDS: ASPIRIN EC 81 MG TABLET PO (08:20)
[2021-04-10] MEDS: DOCUSATE 100 MG CAPSULE PO ×2 (08:20→20:41)
[2021-04-10] MEDS: FUROSEMIDE 40 MG TABLET PO (08:20)
[2021-04-10] MEDS: predniSONE 20 MG TABLET PO (08:20)
[2021-04-10] MEDS: NYSTATIN POWDER 15GM 1 APPLIC TOP (08:23)
[2021-04-10] MEDS: SODIUM CHLORIDE 0.9% FLUSH 10 ML IV ×2 (08:23→20:44)
[2021-04-10] MEDS: LOSARTAN 50 MG TABLET 100 MG PO (08:27)
[2021-04-10] MEDS: INSULIN GLARGINE 100 UNIT/ML 3ML PEN 30 UNIT SUBCUT ×2 (08:28→20:43)
[2021-04-10] MEDS: INSULIN LISPRO 100 UNIT/ML 3ML VIAL SUBCUT ×4 (08:29→20:45)
--- NOTE | 2021-04-10 08:31 | CM.DPNOTE ---
DCP Update Spoke w/ Shannan at [facility] in [place], yesterday, P# [phone] F# [phone]. Patient has been accepted for admission Monday04.12.21. Shannan needs the following before admission: -PASRR -Wound care notes (?) -DC Summary -Signed Med list (no physical Rx needed, they have an MD and pharmacy on site) -Updated COVID test w/in 72 hrs of admission Spoke w/patient and son Bradley Montalvo () P#[phone], both agreeable to this plan. Jake Huerta will plan to transport patient Monday and expects this to be a 3 [address]+ drive, asks that patient be ready by 0930 Monday AM if feasible. CM team will begin securing above in preparation for DC Monday. Dr Espino updated yesterday re plan. BENEDICT
--- NOTE | 2021-04-10 10:30 | OT.IPNOTE ---
Pt just showered and tired. Pt states has difficulty to wipe and re-educated pt on information of toilet paper aid. In addition when showering to use a long thin towel to help reach the areas between his legs. Otherwise pt may need to look into getting assist for completeness at his [facility] for toileting and showering needs. Pt states has no further OT needs and waiting to go to [facility] Monday, therefore discharge pt from OT services.
--- NOTE | 2021-04-10 11:20 | PT-IP ANOTE ---
Addendum entered and electronically signed by Shonda Rios, HEADING MAKER 04/10/21 13:34: Spoke w/ immigration case worker and RN, both agree pt okay to d/c from PT per patients request. Original Note: Pt refused therapy this AM and stated he does not wish to have further PT from now on.
--- NOTE | 2021-04-10 14:28 | PT.IPTN ---
Current Diagnoses Morbid (severe) obesity due to excess calories (04/04/21) Acute and chronic respiratory failure with hypercapnia (04/04/21) Edema, unspecified (04/04/21) Physical Therapy Treatment Note M2 PT-IP Current Condition Start: 04/07/21 14:16 Freq: NEEDED Status: Active Protocol: Document 04/07/21 13:40 AB (Rec: 04/07/21 14:29 AB [id number]) Physical Therapy Current Condition Current Condition Evaluation Date 04/07/21 Treatment Diagnosis COPD exacerbation; difficulty in walking Onset Date 05/04/21 M3 PT-IP Subjective Start: 04/07/21 14:16 Freq: NEEDED Status: Active Protocol: Document 04/10/21 14:27 AB (Rec: 04/10/21 14:28 AB [id number]) Subjective Physical Therapy Visit Type Type Administrative Note Notes per MODELER, pt requested to be d/ c'd from PT. nurse and director of casework was informed regarding PT d/c by MODELER. M7 PT-IP Assessment and Plan Start: 04/07/21 14:16 Freq: NEEDED Status: Active Protocol: Document 04/10/21 14:27 AB (Rec: 04/10/21 14:28 AB [id number]) PT Summary Assessment and Plan Frequency of Treatment Frequency Of Treatment Discharge
--- NOTE | 2021-04-10 17:36 | P.PN_ITS ---
Subjective Subjective Interval history: Patient endorses improvement in his breathing since admission. He endorses nightly BiPAP adherence here. He reports having a CPAP at home, but being told multiple times that a BiPAP would be better for him. He is pending approval for a BiPAP by the [place]. Exam Vital Signs (past 8 hours): - 04/10/21 11:57 04/10/21 13:28 04/10/21 15:00 Temperature 98.1 F 98.9 F Pulse Rate 68 77 Respiratory Rate 15 16 Blood Pressure 163/58 H 174/72 H Pulse Oximetry 97 97 95 04/10/21 15:31 04/10/21 16:52 Temperature Pulse Rate 66 Respiratory Rate 16 Blood Pressure 168/64 H Pulse Oximetry 100 94 Fraction of Inspired Oxygen 35 Oxygen Delivery Method Nasal Cannula Oxygen Flow Rate 2 Narrative Exam Narrative: Narrative Exam Narrative: Obese male sitting in bed in no obvious distress Resp Other: Lungs decreased breath sounds with scattered fine crackles bilaterally Cardio Other: Cardiac exam: Regular rate and rhythm normal S1-S2 with a 3/6 systolic ejection murmur GI Other: Abdomen:? Soft, non-tender, non-distended, bowel sounds present Extrem Other: 1+ pitting edema to level of knees bilaterally, with stasis dermatitis changes Objective Labs Result Diagrams: 04/08/21 05:15 04/09/21 06:20 [facility] Social History household members: none Smoking Status: Never smoker alcohol intake: former Assessment & Plan Assessment & Plan narrative: 1. Acute on chronic hypercapnic respiratory failure -suspect related to not having BiPAP at home -most likely represents underlying obesity hypoventilation -doubt COPD a significant contributor -will taper steroid -continue nighttime BiPAP -continue daytime oxygen -evaluation of Trilogy, and pending approval by the [place] for the patient -Patient has had multiple hospitalizations due to hypercapnic respiratory failure, goal is to decrease readmissions due to respiratory failure -Patient has tried and failed CPAP multiple times. He was on CPAP at home and was readmitted 7 days after last hospitalization -PT OT evaluation -discharge planning evaluation for possible SNF at discharge 2. Acute pulmonary edema, improving -echo reveals EF of 60-65% -patient was lower extremity edema -he diuresed 1 L, had an increase in creatinine, now returned to normal resume home oral Lasix 3. Metabolic encephalopathy, present on admission, now resolved -likely related to underlying CO2 narcosis 4. Type 2 diabetes -taper steroids -continue sliding scale insulin 5. Morbid obesity -dietary consultation 6. Venous stasis insufficiency with stasis dermatitis -Lasix as above -elevate legs 7. Self neglect -discharge planning consultation Home when placement can be arranged, patient has been accepted into an assisted living facility for Monday. He will be transferred there by his son on Monday.?Will continue to work on the [employer] device and trial that here in the hospital 8. Scrotal edema/ intertriginous alexandre -continue nystatin cream -elevate scrotum VTE prophylaxis: Lovenox 40 mg bid Time Spent With Patient Critical Care time: I spent a total of [] minutes of critical care time on this patient's care today; this time is exclusive of procedural time. Quality VTE Deep Vein Thrombosis/Pulmonary Embolism Present on Admission: No
[2021-04-10] MEDS: ATORVASTATIN 20 MG TABLET 80 MG PO (20:40)
[2021-04-10] MEDS: SERTRALINE 50 MG TABLET 200 MG PO (20:41)
[2021-04-10] MEDS: NYSTATIN CREAM 30 GM 1 APPLIC TOP (20:43)
[2021-04-11] VITALS (17 sets, daily range): BP systolic 148–181; BP diastolic 58–66; PULSE 61–92; RESP 15–22; TEMP 36.4–37.2; O2SAT 92–98
[2021-04-11] MEDS: FUROSEMIDE 40 MG TABLET PO (07:53)
[2021-04-11] MEDS: DOCUSATE 100 MG CAPSULE PO ×2 (07:53→20:39)
[2021-04-11] MEDS: ENOXAPARIN 40 MG/0.4 ML SYRINGE SUBCUT ×2 (07:53→20:39)
[2021-04-11] MEDS: TAMSULOSIN 0.4 MG CAPSULE 0.8 MG PO (07:54)
[2021-04-11] MEDS: LOSARTAN 50 MG TABLET 100 MG PO (07:54)
[2021-04-11] MEDS: SODIUM CHLORIDE 0.9% FLUSH 10 ML IV ×2 (07:54→20:49)
[2021-04-11] MEDS: ASPIRIN EC 81 MG TABLET PO (07:54)
[2021-04-11] MEDS: predniSONE 20 MG TABLET PO (07:54)
[2021-04-11] MEDS: DOXYCYCLINE HYCLATE 100 MG TABLET PO ×2 (07:55→20:41)
[2021-04-11] MEDS: INSULIN GLARGINE 100 UNIT/ML 3ML PEN 30 UNIT SUBCUT ×2 (07:56→20:42)
[2021-04-11] MEDS: ALBUTEROL/IPRATROPIUM 3 ML AMPUL INH ×5 (07:59→23:16)
[2021-04-11] MEDS: NYSTATIN POWDER 15GM 1 APPLIC TOP ×2 (08:00→15:53)
[2021-04-11] MEDS: INSULIN LISPRO 100 UNIT/ML 3ML VIAL SUBCUT ×3 (12:07→20:44)
--- NOTE | 2021-04-11 13:40 | CM.DPC ---
Addendum entered by LOVE Sharma 04/11/21 14:07: ADD: Per MD, pt will d/c tomorrow regardless if bipap/trilogy all set up as pt can manage for a few days with his home CPAP until set up. SW updated RN and she will get updated COVID swab today during her shift for d/c tomorrow morning. BF Original Note: DCP Cont: Per MD, pt [facility] be [facility] pending confirmation from RT that pt has the neccessary equipment recommended (bipap/trilogy) in place prior to d/c to [place] facility. SW spoke to RT and requested they determine where in the process with the [facility] they are at towards approving the needed RT equipment prior to plan of d/c tomorrow morning around 0930 and RT will follow up on possible Trilogy/bipap for home use. aware that son will be bedside and hopeful to transport pt around 0930 if possible. Due to confusion with RT/bipap/trilogy RN feels better to get updated COVID swab tomorrow morning in case pt's d/c gets postponed. Plan: SW to follow up with RT right away in the morning with recommendation of bipap/trilogy through the [facility] to reduce risk of delaying d/c to [facility] in [place] in the morning via son POV. LOVE Sharma
[2021-04-11 15:20] LABS: COVID19 -Nasal RAPID Negative (Negative)
--- NOTE | 2021-04-11 16:51 | PM.PN.1 ---
Subjective Subjective Interval history: Patient reports his respiratory status is stable. Denies any issues overnight. Denies any acute complaints. He is adamant about leaving tomorrow morning to rehab facility, even if BiPAP cannot be ensured at the facility. Exam Vital Signs (past 8 hours): - 04/11/21 09:00 04/11/21 11:03 04/11/21 12:00 Temperature 98.0 F Pulse Rate 66 89 Respiratory Rate 15 18 Blood Pressure 163/66 H Pulse Oximetry 95 93 95 04/11/21 13:08 04/11/21 14:59 04/11/21 16:00 Temperature 97.7 F Pulse Rate 61 71 Respiratory Rate 15 16 Blood Pressure 148/58 H Pulse Oximetry 96 93 95 Fraction of Inspired Oxygen 35 Oxygen Delivery Method Nasal Cannula Oxygen Flow Rate 2 Const Other: Patient sitting in chair comfortably upon my entering the room, reading, and in no apparent acute distress Eyes Other: No scleral icterus appreciated. Resp Other: Diminished breath sounds bilaterally with diffuse ronchi heard throughout. Cardio Other: Regular rate and rhythm. S1 and S2 heart sounds auscultated with no extra heart sounds or murmurs appreciated. 1+ peripheral edema, pitting, appreciated. GI Other: Soft, non-distended, non-tender. Bowel sounds present. Extrem Other: Venous insufficiency edema appreciated, with stasis dermatitis changes. Palpable and bilaterally equal radial and dorsalis pedis pulses. Objective Labs Result Diagrams: 04/08/21 05:15 04/09/21 06:20 Labs: Laboratory Results - last 24 hr 04/11/21 14:45 SARS-CoV-2 (PCR) Negative COUNTS INCLUDE 234 BEDS AT THE [facility] Social History household members: none Smoking Status: Never smoker alcohol intake: former Assessment & Plan Assessment & Plan narrative: 1. Acute on chronic hypercapnic respiratory failure -suspect related to not having BiPAP at home -most likely represents underlying OHS/VALERIE -doubt COPD a significant contributor -continue nighttime BiPAP, day time oxygen -Patient has had multiple hospitalizations due to hypercapnic respiratory failure, goal is to decrease readmissions due to respiratory failure -Patient has tried and failed CPAP multiple times, as BiPAP would offer him better respiratory support 2. Acute pulmonary edema, resolved -echo reveals EF of 60-65% -resume home oral Lasix 3. Metabolic encephalopathy, present on admission, resolved -likely related to underlying CO2 narcosis 4. Type 2 diabetes -continue sliding scale insulin 5. Morbid obesity -dietary consultation 6. Venous stasis insufficiency with stasis dermatitis -Lasix as above -elevate legs 7. Self-neglect -discharge planning consultation 8. Scrotal edema / intertriginous alexandre -continue nystatin cream -elevate scrotum VTE prophylaxis: Lovenox 40 mg bid Time Spent With Patient Critical Care time: I spent a total of [] minutes of critical care time on this patient's care today; this time is exclusive of procedural time. Quality VTE Deep Vein Thrombosis/Pulmonary Embolism Present on Admission: No
[2021-04-11] MEDS: ATORVASTATIN 20 MG TABLET 80 MG PO (20:39)
[2021-04-11] MEDS: SERTRALINE 50 MG TABLET 200 MG PO (20:39)
[2021-04-11] MEDS: NYSTATIN CREAM 30 GM 1 APPLIC TOP (20:42)
[2021-04-12] VITALS: O2SAT 96
[2021-04-12 01:00] VITALS: BP 153/58; PULSE 61; RESP 14; TEMP 36.2; O2SAT 95
[2021-04-12 04:00] VITALS: O2SAT 95
[2021-04-12 06:57] VITALS: BP 155/67; PULSE 63; RESP 22; TEMP 36.6; O2SAT 97
[2021-04-12] MEDS: ALBUTEROL/IPRATROPIUM 3 ML AMPUL INH (07:15)
[2021-04-12 07:17] VITALS: PULSE 67; RESP 16; O2SAT 95
[2021-04-12] MEDS: INSULIN LISPRO 100 UNIT/ML 3ML VIAL SUBCUT (08:22)
[2021-04-12] MEDS: predniSONE 20 MG TABLET PO (08:34)
[2021-04-12 08:35] VITALS: BP 155/67
[2021-04-12] MEDS: FUROSEMIDE 40 MG TABLET PO (08:35)
[2021-04-12] MEDS: ASPIRIN EC 81 MG TABLET PO (08:35)
[2021-04-12] MEDS: TAMSULOSIN 0.4 MG CAPSULE 0.8 MG PO (08:35)
[2021-04-12] MEDS: DOCUSATE 100 MG CAPSULE PO (08:35)
[2021-04-12] MEDS: DOXYCYCLINE HYCLATE 100 MG TABLET PO (08:35)
[2021-04-12] MEDS: LOSARTAN 50 MG TABLET 100 MG PO (08:35)
[2021-04-12] MEDS: INSULIN GLARGINE 100 UNIT/ML 3ML PEN 30 UNIT SUBCUT (08:36)
[2021-04-12] MEDS: SODIUM CHLORIDE 0.9% FLUSH 10 ML IV (08:37)
[2021-04-12] MEDS: ENOXAPARIN 40 MG/0.4 ML SYRINGE SUBCUT (08:37)
--- NOTE | 2021-04-12 09:25 | CM.DPC ---
DCP Discharge SNF Per MD, pt remains stable to d/c to SNF today and no identified barriers to discharge. Updated COVID swab obtained yesterday by RN and negative. Per RN today, confirmed no wound care just cream applied to scrotal area and adema not requiring wound care. SW spoke to Anayeli at [facility] [phone] and confirmed that even though they are having staffing issues they are aware son is already headed to [facility] to transport and pt stable for d/c and willing to still accept. Confirmed they need updated COVID, PASRR, signed med rec, d/c summary. CC Marie kindly faxing these. RODRIGO updated RN, MD, company doctor, and [facility]. SW provided RN report number to call. Plan: Patient to d/c to [facility] today via son POV around 30. LOVE Sharma
--- NOTE | 2021-04-12 10:34 | PM.PN.1 ---
Subjective Subjective Interval history: Patient denies any acute complaints this morning. He reports understanding that his venous insufficiency worsens if he does not elevate his legs regularly. He is looking forward to being discharged today to the rehab facility. His son states that he brought his home ventilator machine, which he believes is a BiPAP. Exam Vital Signs (past 8 hours): - 04/12/21 04:00 04/12/21 06:57 04/12/21 07:17 Temperature 97.9 F Pulse Rate 63 67 Respiratory Rate 22 16 Blood Pressure 155/67 H Pulse Oximetry 95 97 95 04/12/21 08:35 Temperature Pulse Rate Respiratory Rate Blood Pressure 155/67 H Pulse Oximetry Fraction of Inspired Oxygen 35 Oxygen Delivery Method Nasal Cannula Oxygen Flow Rate 3 Narrative Exam Narrative: Const Other: Patient sitting in chair comfortably upon my entering the room, eating breakfast, and in no apparent acute distress, with son at bedside Eyes Other: No scleral icterus appreciated. Resp Other: Diminished breath sounds bilaterally with diffuse ronchi heard throughout. Cardio Other: Regular rate and rhythm. S1 and S2 heart sounds auscultated with no extra heart sounds or murmurs appreciated. 1+ peripheral edema, pitting, appreciated. GI Other: Soft, non-distended, non-tender. Bowel sounds present. Extrem Other: Venous insufficiency edema appreciated, with stasis dermatitis changes. Palpable and bilaterally equal radial and dorsalis pedis pulses. Objective Labs Result Diagrams: 04/08/21 05:15 04/09/21 06:20 Labs: Laboratory Results - last 24 hr 04/11/21 14:45 SARS-CoV-2 (PCR) Negative [facility] Social History household members: none Smoking Status: Never smoker alcohol intake: former Assessment & Plan Assessment & Plan narrative: 1. Acute on chronic hypercapnic respiratory failure -suspect related to not having BiPAP at home -most likely represents underlying OHS/VALERIE -doubt COPD a significant contributor -continue nighttime BiPAP, day time oxygen -Patient has had multiple hospitalizations due to hypercapnic respiratory failure, goal is to decrease readmissions due to respiratory failure -Patient has tried and failed CPAP multiple times, as BiPAP would offer him better respiratory support 2. Acute pulmonary edema, resolved -echo reveals EF of 60-65% -resume home oral Lasix 3. Metabolic encephalopathy, present on admission, resolved -likely related to underlying CO2 narcosis 4. Type 2 diabetes -continue sliding scale insulin 5. Morbid obesity -dietary consultation 6. Venous stasis insufficiency with stasis dermatitis -Lasix as above -elevate legs 7. Self-neglect -discharge planning consultation 8. Scrotal edema / intertriginous alexandre -continue nystatin cream -elevate scrotum VTE prophylaxis: Lovenox 40 mg bid Time Spent With Patient Critical Care time: I spent a total of [] minutes of critical care time on this patient's care today; this time is exclusive of procedural time. Quality VTE Deep Vein Thrombosis/Pulmonary Embolism Present on Admission: No
--- NOTE | 2021-04-12 10:41 | P.DS_ITS ---
History of Present Illness History of Present Illness Chief complaint: Weakness Discharge Providers Provider Date of admission: 04/04/21 16:42 Discharge Date: 04/12/21 Consults: 04/04/21 17:10 Consult to Discharge Planning Routine Comment: 04/05/21 12:03 Consult to LAB ANIMAL TECHNICIAN - Behavioral Health Counselor Routine Comment: 04/07/21 10:56 Consult to Occupational Therapy Evaluate & Treat Comment: Physician Instructions: Evaluate and treat Consult to Physical Therapy Evaluate & Treat Comment: Physician Instructions: Evaluate and Treat Discharge provider: Akbar Joe MD Summary Hospital Course Discharge Diagnosis: 1. Acute on chronic hypercapnic respiratory failure 2. Acute pulmonary edema, resolved 3. Metabolic encephalopathy, present on admission, resolved 4. Type 2 diabetes 5. Morbid obesity 6. Venous stasis insufficiency with stasis dermatitis 7. Self-neglect 8. Scrotal edema / intertriginous alexandre Hospital Course: 70yo male with a hx of insulin-dependent DM II, hypertension, BPH and likely OHS /VALERIE that presented with acute on chronic hypercapneic respiratory failure leading to CO2 narcosis encephalopathy that likely occurred due to having CPAP at home instead of BiPAP. The patient likely has obesity hypoventilation syndrome (OHS) with a component of obstructive sleep apnea (VALERIE), too. This would make BiPAP more helpful with his ventilation than CPAP would. BiPAP measures inpatient returned the patient back to his baseline health. Arrangements were being made to ensure that patient has BiPAP support, or Trilogy CPAP device which functions similiarly to BiPAP, [facility]. However, patient was adamant that he be discharged today to the facility, irrespective of whether these devices can be secured there. He reported that his son will bring the patient's home noninvasive ventilation device, but I did tell him that if it's a CPAP, it will not help him as much as BiPAP, and his CO2 might build-up again. He reports understanding the risk, and wished to proceed. The patient was discharged with no home medication changes, and encouraged to see a permanent mold supervisor outpatient to help with his OHS/VALERIE. Exam Vital Signs (past 8 hours): - 04/12/21 04:00 04/12/21 06:57 04/12/21 07:17 Temperature 97.9 F Pulse Rate 63 67 Respiratory Rate 22 16 Blood Pressure 155/67 H Pulse Oximetry 95 97 95 04/12/21 08:35 Temperature Pulse Rate Respiratory Rate Blood Pressure 155/67 H Pulse Oximetry Fraction of Inspired Oxygen 35 Oxygen Delivery Method Nasal Cannula Oxygen Flow Rate 3 Narrative Exam Narrative: Const Other: Patient sitting in chair comfortably upon my entering the room, eating breakfast, and in no apparent acute distress, with son at bedside Eyes Other: No scleral icterus appreciated. Resp Other: Diminished breath sounds bilaterally with diffuse ronchi heard throughout. Cardio Other: Regular rate and rhythm. S1 and S2 heart sounds auscultated with no extra heart sounds or murmurs appreciated. 1+ peripheral edema, pitting, appreciated. GI Other: Soft, non-distended, non-tender. Bowel sounds present. Extrem Other: Venous insufficiency edema appreciated, with stasis dermatitis changes. Palpable and bilaterally equal radial and dorsalis pedis pulses. Objective Labs Result Diagrams: 04/08/21 05:15 04/09/21 06:20 Labs: Laboratory Results - last 24 hr 04/11/21 14:45 SARS-CoV-2 (PCR) Negative [facility] Social History household members: none Smoking Status: Never smoker alcohol intake: former Discharge Assessment & Plan Assessment and Plan Assessment: 1. Acute on chronic hypercapnic respiratory failure -suspect related to not having BiPAP at home -most likely represents underlying OHS/VALERIE -doubt COPD a significant contributor -continue nighttime BiPAP, day time oxygen -Patient has had multiple hospitalizations due to hypercapnic respiratory failure, goal is to decrease readmissions due to respiratory failure -Patient has tried and failed CPAP multiple times, as BiPAP would offer him better respiratory support 2. Acute pulmonary edema, resolved -echo reveals EF of 60-65%, with elevated right-sided pressures -resume home oral Lasix 3. Metabolic encephalopathy, present on admission, resolved -likely related to underlying CO2 narcosis 4. Type 2 diabetes -continue sliding scale insulin 5. Morbid obesity -dietary consultation 6. Venous stasis insufficiency with stasis dermatitis -Lasix as above -elevate legs 7. Self-neglect -discharge planning consultation 8. Scrotal edema / intertriginous alexandre -continue nystatin cream -elevate scrotum Discharge Plan Discharge Plan Patient Disposition: Assisted Living Discharge orders & Medications Discharge Orders: Discharge (Order); Ordered 04/12/21 Ordered By: Haydar Ali Prescriptions: Continued furosemide [Lasix] 40 mg Tablet 40 mg PO DAILY 0RF atorvastatin 80 mg Tablet 80 mg PO DAILY 0RF insulin glargine 100 unit/mL Solution 30 unit SUBCUT BID 0RF tamsulosin [Flomax] 0.4 mg Capsule 0.8 mg PO BEDTIME 0RF insulin aspart U-100 [Novolog U-100 Insulin aspart] 100 unit/mL Solution 7 unit SUBCUT TIDWM 0RF metformin 1,000 mg Tablet 1,000 mg PO BID 0RF losartan 100 mg Tablet 100 mg PO DAILY 0RF empagliflozin 25 mg Tablet 12.5 mg PO DAILY 0RF aspirin 81 mg Capsule 81 mg PO DAILY 0RF sertraline 200 mg Capsule 200 mg PO DAILY 0RF Quality VTE Deep Vein Thrombosis/Pulmonary Embolism Present on Admission: No
--- NOTE | 2021-04-12 11:26 | CM.DPNOTE ---
Faxed final clinicals to [facility] [phone], and received conf. Marie Zhu CM Asst.
--- NOTE | 2021-04-12 11:54 | PC.NURSE ---
Addendum entered by Rossy Estevez R.N. 04/12/21 14:53: Report given to facility RN upon call back, all questions/concerns addressed. Original Note: Discharge Note Patient A&O, VSS, RA, no complaints of pain or discomfort. Discharge packet reviewed with patient all question/concerns addressed. PIV/TELE removed. All belongings packed and given to patient. Discharge packet given to son to give to facility upon arrival. Patient taken down via wheelchair to POV.
[2021-04-16 01:22] LABS: PCO2 ABG 86.8 mmHg (35-45)
[2021-04-16 01:23] LABS: PCO2 ABG 86.3 mmHg (35-45); PO2 ABG 77 mmHg (80-100)
== END 2021-04-12 10:30 | DRG 190 ==
LOC: ED 16:40 → AC 16:44 → ICU 04-05 18:59 → AC 04-08 14:43
PROVIDERS: Internal Medicine; Admitting Provider Hospitalist; Emergency Provider Emergency Medicine; Referring Provider Emergency Medicine; Visit Provider Hospitalist
DX: J44.1 Chronic obstructive pulmonary disease with (acute) exacerbation (principal); J96.22 Acute and chronic respiratory failure with hypercapnia; G93.41 Metabolic encephalopathy; J81.0 Acute pulmonary edema; E66.2 Morbid (severe) obesity with alveolar hypoventilation; Z68.42 Body mass index [BMI] 45.0-49.9, adult; T76.01XA Adult neglect or abandonment, suspected, initial encounter; Z99.81 Dependence on supplemental oxygen; M25.511 Pain in right shoulder; I87.2 Venous insufficiency (chronic) (peripheral); E11.9 Type 2 diabetes mellitus without complications; N40.0 Benign prostatic hyperplasia without lower urinary tract symptoms; I10 Essential (primary) hypertension; B37.2 Candidiasis of skin and nail; Z79.84 Long term (current) use of oral hypoglycemic drugs; Z79.4 Long term (current) use of insulin; Z20.822 Contact with and (suspected) exposure to COVID-19
CPT/HCPCS: 36415; 36600; 70450; 71045; 72125; 73030; 73060; 80048; 80053; 82550; 82805; 82962; 83036; 83605; 83735; 83880; 84145; 84484; 85025; 85610; 87635; 93005; 93306; 94640; 94660; 94760; 94762; 96361; 96365; 96366; 96367; 96368; 96375; 97116; 97162; 97166; 97530; 99284; C9803; J0696; J1650; J1815; J1940; J2930